=== PATIENT | male | born 1950 | race African-American/Black ===

== ENCOUNTER 2017-01-17 02:18 | Emergency (ER) | payer MEDICARE, OTHER ==
[~2017-01-17] VITALS: Ht 177.8 cm; Wt 67.1 kg
[~2017-01-17 02:18] MED LIST: ADVAIR DISKUS; ASPI-612 PO; ATORVASTATIN CA80 MG PO; CARV12.52 PO; CARV25TA PO; CARV25TA2 PO; CLOP75TA PO; CYCL-331 PO; DONE5TAB7 PO; ENAL20TA PO; Enoxaparin Sodium SQ; FERR-26 PO; FLUT1DIS3 IH; HYDR-971 PO; ISOS1TAB2 PO; MEXI150C PO; NITR0.4T22 SL; RAMI2.5C PO; RIVA10TA PO; SIMV20TA3 PO; SOTA80TA48 PO; SPIR25TA3 PO; TIOT18CA IH; TRIA10.8 NS; WARF3TAB54 PO
[2017-01-17] MEDS: SOTALOL 80 MG TABLET. PO ONE (03:15)
[2017-01-17 03:16] LABS: BASO % 1 % (0-3); EOS # 0.3 x10^3/uL (0.0-0.7); EOS % 4 % (0-3); HEMATOCRIT 39.1 % (39.0-53.0); HEMOGLOBIN 12.8 g/dL (13.0-17.5); LYMPH # 2.8 x10^3/uL (1.0-4.8); LYMPH % 44 % (24-48); MEAN CORPUSCULAR HEMOGLOBIN 33 pg (25-35); MEAN CORPUSCULAR HGB CONC 33 g/dL (31-37); MEAN CORPUSCULAR VOLUME 100 fL (79-100); MONO # 0.8 x10^3/uL (0.0-1.1); MONO % 13 % (0-9); NEUT # 2.4 x10^3uL (1.8-7.7); NEUT % 38 % (31-73); PLATELET COUNT 102 x10^3/uL (140-400); RED BLOOD COUNT 3.91 x10^6/uL (4.30-5.70); RED CELL DISTRIBUTION WIDTH 14.9 % (11.5-14.5); WHITE BLOOD COUNT 6.3 x10^3/uL (4.0-11.0)
[2017-01-17 03:38] LABS: ALBUMIN 3.1 g/dL (3.4-5.0); CALCIUM 8.7 mg/dL (8.5-10.1); CREATININE 1.6 mg/dL (0.7-1.3); GFR 52.8; MAGNESIUM 1.9 mg/dL (1.8-2.4); POTASSIUM 3.7 mmol/L (3.5-5.1); TOTAL BILIRUBIN 0.4 mg/dL (0.2-1.0); TOTAL PROTEIN 6.3 g/dL (6.4-8.2)
--- NOTE | 2017-01-17 04:02 | PHYS DOC ---
General Chief Complaint: Palpitations Stated Complaint: PALPATIONS Time Seen by MD: 02:28 Source: patient, old records Exam Limitations: no limitations Problems: History of Present Illness Initial Comments Patient is a 66-year-old male with an extensive past medical history including coronary artery disease, ischemic cardiomyopathy with an ejection fraction of 20 %, arrhythmias including atrial fibrillation and ventricular tachycardia who comes to the emergency department via EMS for palpitations. Patient states that he awoke approximately 1 AM and got up to use the restroom. After urinating he says he laid down in bed but had trouble resting as he felt like his heart was pounding. He denies actual chest pain, shortness of breath, nausea, diaphoresis, arm or neck symptoms, dizziness, or near syncope. His sole symptoms were a feeling as if his heart were racing and pounding and when he mentioned it to his spouse she called 911. On ED arrival 98.5, 85, 20, 155/87, 98% room air Patient follows with Dr. Felton rasmussen at [facility]. He takes Xarelto and has an implanted pacemaker/defibrillator. Timing/Duration: 1 hour Severity: moderate Modifying Factors: improves with other Associated Symptoms: other Allergies: Coded Allergies: No Known Drug Allergies (Unverified , 05/29/15) Past Medical History Medical History: other (coronary artery disease, pulmonary embolism, abdominal aortic aneurysm, arrhythmia (ventricular tachycardia, atrial fibrillation), COPD , hypertension, hyperlipidemia, congestive heart failure, hepatitis C, chronic kidney disease, peripheral vascular disease, Alzheimer's dementia, deep vein thrombosis, ischemic cardiomyopathy with ejection fraction 20%, anemia) Surgical History: other (CABG, angioplasty, cardiac and peripheral stents, pacemaker, defibrillator) Family History Significant Family History: no pertinent family hx Social History Smoker: greater than 1 pack/day Alcohol: occasionally (binges occasionally) Drugs: marijuana, other (history of methamphetamine) Review of Systems Constitutional: denies chills, denies diaphoresis, denies fever, malaise Respiratory: denies cough, denies orthopnea, denies shortness of breath, denies wheezing Cardiovascular: denies chest pain, denies edema, palpitations, denies syncope Gastrointestinal: denies abdominal pain, denies diarrhea, denies nausea, denies vomiting Musculoskeletal: denies back pain, denies joint swelling, denies neck pain Psychiatric/Neurological: denies headache, denies numbness, denies paresthesia Hematologic/Lymphatic: see HPI Physical Exam General Appearance: no apparent distress Eyes: bilateral eye normal inspection, bilateral eye EOMI Ear, Nose, Throat: hearing grossly normal, normal ENT inspection (poor dentition) Neck: non-tender, supple Respiratory: no respiratory distress, other (pain wheeze bilaterally with good air movement chest is nontender no accessory muscle use) Cardiovascular: regular rate, rhythm, no edema, systolic murmur (II/) Gastrointestinal: non tender, soft Back: no CVA tenderness, no vertebral tenderness Extremities: normal range of motion, non-tender, normal inspection, no pedal edema, no calf tenderness Neurologic/Psychiatric: search engine optimization consultant II-XII nml as tested, no motor/sensory deficits, alert, normal mood/affect, oriented x 3 Skin: normal color, warm/dry Orders, Labs, Meds EKG: (223) normal sinus rhythm 63 bpm, LVH with left ventricular strain versus T inversions anterolaterally no ST elevation noted interpreted by Dr. Chung. At 315 telemetry revealed the patient in ventricular tachycardia with rates in the 140s to 150s. This occurred while the patient was undergoing a portable chest film and I was called emergently to the bedside. As we cleared the room the patient did answer that he was feeling no adverse symptoms including no chest pain or difficulty breathing. I asked the patient to cough and bear down without any improvement in his cardiac rhythm. Patient converted to normal sinus rhythm after approximately 4 minutes without any other intervention. At 330 I was again called to the patient's bedside as the patient slipped into ventricular tachycardia once again this time lasting for 2 minutes and he converted to normal sinus rhythm spontaneously without intervention. The patient cannot recall the name of his community placement worker so he contacted his significant other. 337: I discussed the patient with on-call cardiology Dr. Harley Hodges. He directed that I initiate amiodarone 200 mg by mouth 3 times a day first dose now. The patient is anticoagulated on Xarelto and I did inform Dr. Hodges of the patient's elevated troponin. At this point he requested that the patient be transferred to [facility] and admitted to himself for further evaluation and treatment. Single view chest: Hyperinflation with pacemaker noted no acute cardiopulmonary process. Interpreted by Dr. Chung. Pertinent labs: D-dimer 0.72, BUN 16, creatinine 1.6, glucose 163, AST 58, afebrile T1 102, troponin 0.061, BNP 1117, EtOH less than 10, urine studies including drug screen remain pending. 0425: Patient rechecked, he remained with stable vital signs and denies any current symptoms. I discussed [facility] transfer and new medication amiodarone. Patient's questions were answered and he is agreeable to transfer " I just want to get well." 0507: Urine drug screen is once again positive for amphetamine/methamphetamine. This has been the case in the past and the patient continues to deny any use. 0531: [facility] initially notified us that had no ICU beds. I contacted Dr. Hodges, he is agreeable to CCU or telemetry admission what ever we're able to come up with and he will sort it out in the morning. This was over an hour ago, I just received word that [facility] houseman contacted our community engagement manager notifying her that no transfer would take place until after shift change at 7 AM. Patient remains in guarded condition Impressions: Paroxysmal ventricular tachycardia Ischemic cardiomyopathy with congestive heart failure Elevated troponin Chronic kidney disease Tobaccoism Methamphetamine abuse Marijuana abuse Chronic Xarelto anticoagulation History of COPD/PE/hepatitis C Departure Time of Disposition: 04:24 Disposition: 01 HOME, SELF-CARE Diagnosis: ventricular tachycardia, elevated troponin, CHF, Condition: GUARDED Additional Instructions: EMS transfer to [facility] for CCU admission Dr. Hodges is the accepting physician. Critical Care Note Total Time (mins): 90 Comments Direct observation and supervision of tachyarrhythmia management, test interpretation, data collection for patient history, and arranging transfer. CHRIS CHUNG DO Jan 17, 2017 04:02
[2017-01-17] MEDS: AMIODARONE HCL 200 MG TABLET PO ONE (04:15)
[2017-01-17] MEDS ORDERED: MAGN100T PO (04:35)
[2017-01-17 04:54] LABS: BARBITURATES NEG (NEG); BENZODIAZEPINES NEG (NEG); CANNABINOIDS NEG (NEG); COCAINE NEG (NEG); METHADONE NEG (NEG); OPIATES NEG (NEG); PHENCYCLIDINE NEG (NEG)
[2017-01-17 04:58] LABS: AMPHETAMINE/METHAMPHETAMINE POS (NEG)
[2017-01-17 05:02] LABS: BILIRUBIN,URINE NEG (NEG); CLARITY,URINE CLEAR; COLOR,URINE YELLOW; GLUCOSE,URINE NEG (NEG); NITRITE,URINE NEG (NEG); UROBILINOGEN,URINE 0.2 mg/dL (0.2 mg/dL)
[2017-01-17 05:03] LABS: BACTERIA,URINE 0 /HPF (0-FEW); RBC,URINE 0 /HPF (0-2); WBC,URINE OCC /HPF (0-4)
[2017-01-17 08:03] VITALS: BP 127/67
--- NOTE | 2017-01-17 08:22 | RAD ---
Exam performed: One view chest. Indication: palpitations Date of Service: 01/17/2017 5:05 AM Comparison: One view chest from 10/19/15. Single AP upright portable view chest findings: Cardiomediastinal silhouette is within limits of normal. There is a bipolar pacemaker in place. No acute infiltrates, effusion or pneumothorax is detected. The bony structures are normal. Impression: No acute cardiopulmonary process is detected.
--- NOTE | 2017-01-17 13:45 | EKG ---
[address] [address] Test Date: 2017-01-17 Test Time: 02:24:49 Pat Name: LISY BENNETT Department: Room: Gender: M Senior Systems Architect: DEANDRE : 1950 Requested By: CHRIS ANAYA Order Number: [id number] Reading MD: Alejandro Borja Measurements Intervals [place] Rate: 63 P: 54 IN: 176 QRS: -44 QRSD: 86 T: 136 QT: 404 QTc: 416 Interpretive Statements SINUS RHYTHM CONSIDER LEFT VENTRICULAR HYPERTROPHY ST & T ABNORMALITY, CONSIDER ANTERIOR ISCHEMIA OR LEFT VENTRICULAR STRAIN Electronically Signed On 01-18-2017 9:33:02 CDT by Alejandro Borja
--- NOTE | 2017-01-17 13:47 | EKG ---
[address] [address] Test Date: 2017-01-17 Test Time: 03:22:22 Pat Name: LISY BENNETT Department: Room: Gender: M Value Stream Coach: DEANDRE : 1950 Requested By: CHRIS ANAYA Order Number: [id number] Reading MD: Alejandro Borja Measurements Intervals [place] Rate: 86 P: WI: QRS: -53 QRSD: 210 T: 133 QT: 432 QTc: 520 Interpretive Statements SR BIGIMINAL PVC ABNORMAL EKG Electronically Signed On 01-18-2017 9:33:27 CDT by Alejandro Borja
--- NOTE | 2017-01-17 13:47 | EKG ---
[address] [address] Test Date: 2017-01-17 Test Time: 03:31:21 Pat Name: LISY BENNETT Department: Room: Gender: M Imaging Account Manager: DEANDRE : 1950 Requested By: CHRIS ANAYA Order Number: [id number] Reading MD: Alejandro Borja Measurements Intervals [place] Rate: 139 P: -143 ME: 66 QRS: -111 QRSD: 204 T: 70 QT: 334 QTc: 514 Interpretive Statements VENTRICULAR TACHYCARDIA Electronically Signed On 01-18-2017 9:33:55 CDT by Alejandro Borja
== END 2017-01-17 08:10 | disposition home or self-care (01) ==
LOC: ER 02:18
DX: I47.2 Ventricular tachycardia (principal); R79.89 Other specified abnormal findings of blood chemistry; I13.0 Hypertensive heart and chronic kidney disease with heart failure and stage 1 through stage 4 chronic kidney disease, or unspecified chronic kidney disease; I25.810 Atherosclerosis of coronary artery bypass graft(s) without angina pectoris; I50.9 Heart failure, unspecified; N18.9 Chronic kidney disease, unspecified; F17.210 Nicotine dependence, cigarettes, uncomplicated; E78.5 Hyperlipidemia, unspecified; I42.9 Cardiomyopathy, unspecified; I48.91 Unspecified atrial fibrillation; J44.9 Chronic obstructive pulmonary disease, unspecified; Z86.718 Personal history of other venous thrombosis and embolism; Z86.711 Personal history of pulmonary embolism; Z86.19 Personal history of other infectious and parasitic diseases; Z86.2 Personal history of diseases of the blood and blood-forming organs and certain disorders involving the immune mechanism; Z98.62 Peripheral vascular angioplasty status; Z95.0 Presence of cardiac pacemaker
CPT/HCPCS: 36415; 71010; 80053; 80307; 81001; 82550; 83735; 83880; 84484; 85025; 85379; 93005; 99291; 99292; G0480; G0479

== ENCOUNTER 2017-09-18 09:42 | Emergency (ER) | payer MEDICARE, OTHER ==
[~2017-09-18 09:42] MED LIST changes: -FERR-26 PO; +FERR325T14 PO; +MAGN100T PO
[2017-09-18 10:13] VITALS: BP 142/60
--- NOTE | 2017-09-18 10:31 | PHYS DOC ---
Past History Past Medical History: A-Fib, Anemia, CAD, CHF, COPD, Heart Disease, Hypertension, Liver Disease, NM, Renal Disease Past Surgical History: Pacemaker Additional Past Surgical Histo: MULTIPLE STENT PLACEMENT Smoking: Less than 1pk/day Alcohol Use: Rarely Drug Use: Marijuana Adult General Chief Complaint Chief Complaint: DENTAL PROBLEM HPI HPI Patient is a 67 year old M who presents with a mass in his lower abdomen is been present for several years. He notes this mass which sometimes sticks out and sometimes does not. He has no pain or associated symptoms. He also describes swelling of his upper left lip which began this morning. He denies pain associated with the swelling. He has no dental pain. He has no fever sweats or chills. His enalapril was increased several days ago. Review of Systems Review of Systems Constitutional: Denies fever or chills [] Eyes: Denies change in visual acuity, redness, or eye pain [] HENT: Denies nasal congestion or sore throat [] Respiratory: Denies cough or shortness of breath [] Cardiovascular: No additional information not addressed in HPI [] GI: Denies abdominal pain, nausea, vomiting, bloody stools or diarrhea [] : Denies dysuria or hematuria [] Musculoskeletal: Denies back pain or joint pain [] Integument: Denies rash or skin lesions [] Neurologic: Denies headache, focal weakness or sensory changes [] Endocrine: Denies polyuria or polydipsia [] All other systems were reviewed and found to be within normal limits, except as documented in this note. Family History Family History No pertinent family medical history was reported Current Medications Current Medications Medications reviewed Allergies Allergies Allergies Coded Allergies Type Severity Reaction Last Updated Verified No Known Drug Allergies 05/29/15 No Physical Exam Physical Exam Constitutional: Well developed, well nourished, no acute distress, non-toxic appearance. [] HENT: Normocephalic, atraumatic, mild swelling of the left upper lip, no adjacent dental infection noted, no obvious signs of infection noted Eyes: EOMI, conjunctiva normal, no discharge. [] Neck: Normal range of motion, no tenderness, supple, no stridor. [] Cardiovascular:Heart rate regular rhythm, no murmur [] Lungs & Thorax: Bilateral breath sounds clear to auscultation [] Abdomen: Bowel sounds normal, soft, no tenderness, no masses, no pulsatile masses. [] Reducible left inguinal hernia noted, no pain Skin: Warm, dry, no erythema, no rash. [] Extremities: No tenderness, no cyanosis, no clubbing, ROM intact, no edema. [] Neurologic: Alert and oriented X 3, normal motor function, normal sensory function, no focal deficits noted. [] Psychologic: Affect normal, judgement normal, mood normal. [] Current Patient Data Vital Signs Vital Signs Date Time Temp Pulse Resp B/P (MAP) Pulse Ox O2 Delivery O2 Flow Rate FiO2 09/18/17 09:42 98.4 74 18 100 Room Air EKG EKG [] Radiology/Procedures Radiology/Procedures [] Course & Med Decision Making Course & Med Decision Making Pertinent Labs and Imaging studies reviewed. (See chart for details) [] Dragon Disclaimer Dragon Disclaimer This electronic medical record was generated, in whole or in part, using a voice recognition dictation system. Departure Departure: Impression: Primary Impression: Inguinal hernia Additional Impression: Angioedema due to angiotensin converting enzyme inhibitor (ELSI-I) Referrals: ANISHA BRENNER MD (PCP) Patient Instructions: Angioedema, Inguinal Hernia, Adult Additional Instructions: Franco was seen in the emergency department for an abdominal mass and lip swelling. No emergency medical condition was found on history or physical exam. He was found to have symptoms of a hernia in his abdomen. His lip swelling may be related to his ramipril. He was advised to stop this medication and follow- up with his primary care doctor as soon as possible for further management. He was advised return to the emergency room as soon as possible if he develops increasing swelling, difficulty breathing or difficulty swallowing or any new or worsening symptoms. Problem Qualifiers Primary Impression: Inguinal hernia Obstruction and gangrene presence: without obstruction or gangrene Laterality : unilateral Recurrence: not specified as recurrent Qualified Codes: K40.90 - Unilateral inguinal hernia, without obstruction or gangrene, not specified as recurrent ANISHA CHRISTIANSON MD Sep 18, 2017 10:31
== END 2017-09-18 10:45 | disposition home or self-care (01) ==
LOC: ER 09:42
DX: K40.90 Unilateral inguinal hernia, without obstruction or gangrene, not specified as recurrent (principal); T46.4X5A Adverse effect of angiotensin-converting-enzyme inhibitors, initial encounter; I48.91 Unspecified atrial fibrillation; I25.10 Atherosclerotic heart disease of native coronary artery without angina pectoris; I11.0 Hypertensive heart disease with heart failure; I50.9 Heart failure, unspecified; J44.9 Chronic obstructive pulmonary disease, unspecified; I25.2 Old myocardial infarction; F17.200 Nicotine dependence, unspecified, uncomplicated; F12.10 Cannabis abuse, uncomplicated; Z95.0 Presence of cardiac pacemaker; Y92.89 Other specified places as the place of occurrence of the external cause
CPT/HCPCS: 99281

== ENCOUNTER 2020-04-29 01:10 | Observation (INO) | payer OTHER, MEDICAID ==
[2020-04-29] VITALS (10 sets, daily range): BP systolic 112–155; BP diastolic 68–104
[~2020-04-29] VITALS: Ht 177.8 cm; Wt 65.7 kg
[~2020-04-29 01:10] MED LIST changes: -ASPI-612 PO; +ASPI-889 PO; -CARV12.52 PO; +CARV12.547 PO; -ENAL20TA PO; +ENAL20TA10 PO; +HYDR-3165 PO; -HYDR-971 PO; -RAMI2.5C PO; +RAMI2.5C2 PO; +SIMV20TA18 PO; -SIMV20TA3 PO; -SPIR25TA3 PO; +SPIR25TA5 PO
--- NOTE | 2020-04-29 04:00 | NUR ---
Admission Note: Pt transported via EMS from ED to ICU room 1, pt transferred from cart to bed with three person assist, VSS (BP continues to remain high, nitro drip infusing as ordered), pt sating 100% on 4liters (turned oxygen down to 2 liters and pt continues to sat 98%), no c/o pain or n/v, pt oriented to room/safety precautions/isolation precautions/ and call light, admission documentation completed, will continue to monitor.
--- NOTE | 2020-04-29 05:21 | PHYS DOC ---
Past History Past Medical History: High Cholesterol, Heart Disease, Hypertension, MA Past Surgical History: Other Additional Past Surgical Histo: MULTIPLE STENT PLACEMENT Smoking: Less than 1pk/day Alcohol Use: Occasionally Drug Use: None General Adult HPI: HPI: History obtained from patient and EMS. Patient is a 61-year-old male with significant cardiac history including coronary artery disease, pacemaker placement, heart failure who presents with acute onset shortness of breath. Per EMS patient reported sudden onset chest pain and shortness of breath just prior to arrival. He did take a home nitroglycerin relief of his chest pain. He states he has had progressive shortness of breath though. Denies any cough or fever. Denies syncope. Denies any feelings of swelling. Denies syncope. States he does have a history of heart failure and this feels similar. Endorses orthopnea and bendopnea. Does not use oxygen at baseline. Denies any recent stent placements. Denies any known exposure to Covid. No other complaints. Review of Systems: Review of Systems: Constitutional: Denies fever or chills Eyes: Denies change in visual acuity HENT: Denies nasal congestion or sore throat Respiratory: Positive for shortness of breath Cardiovascular: Positive for chest pain GI: Denies abdominal pain, nausea, vomiting, bloody stools or diarrhea : Denies dysuria Musculoskeletal: Denies back pain or joint pain Integument: Denies rash Neurologic: Denies headache, focal weakness or sensory changes Endocrine: Denies polyuria or polydipsia Lymphatic: Denies swollen glands Psychiatric: Denies depression or anxiety Allergies: Allergies: Allergies Coded Allergies Type Severity Reaction Last Updated Verified enalapril Allergy Intermediate UPPER LIP SWELLING 09/22/18 Yes Physical Exam: PE: Constitutional: Well developed, well nourished, no acute distress, non-toxic appearance. [] HENT: Normocephalic, atraumatic, bilateral external ears normal, oropharynx moist, no oral exudates, nose normal. [] Eyes: PERRLA, EOMI, conjunctiva normal, no discharge. [] Neck: Normal range of motion, no tenderness, supple, no stridor. [] Cardiovascular: Heart rate regular, nontachycardic, no murmur [] Lungs & Thorax: Rales noted in all lung moran. Accessory muscle usage appreciated. Tachypneic. 90% on BiPAP. Abdomen: soft, no tenderness, no masses, no pulsatile masses. [] Skin: Warm, dry, no erythema, no rash. [] Back: No tenderness, no CVA tenderness. [] Extremities: No tenderness, no cyanosis, no clubbing, ROM intact, no edema. [] Neurologic: Alert and oriented X 3, normal motor function, normal sensory function, no focal deficits noted. [] Psychologic: Affect normal, judgement normal, mood normal. [] EKG: EKG: [] EKG consistent with sinus rhythm. Ventricular rate of 66 bpm. Left axis noted. Artifact present. No obvious ST segment elevation appreciated. Slight ST flattening noted in leads III and V5. Radiology/Procedures: Radiology/Procedures: [] Heart Score: HEART Score for Chest Pain: HEART Score for Chest Pain Response (Comments) Value History Moderately Suspicious 1 ECG Nonspecific Repolarizatio 1 Age > 65 2 Risk Factors >3 Risk Factors or Hx CAD 2 Troponin >1-<3x Normal Limit 1 Total 7 Risk Factors: Risk Factors: DM, Current or recent (<one month) smoker, HTN, HLP, family history of CAD, obesity. Risk Scores: Score 0 - 3: 2.5% MACE over next 6 weeks - Discharge Home Score 4 - 6: 20.3% MACE over next 6 weeks - Admit for Clinical Observation Score 7 - 10: 72.7% MACE over next 6 weeks - Early Invasive Strategies Course & Med Decision Making: Course & Med Decision Making Pertinent Labs and Imaging studies reviewed. (See chart for details) [] Patient is a 69-year-old male who arrives via EMS for acute onset shortness of breath. He does arrive with BiPAP in place. See initial assessment above. Chest x-ray does show pulmonary edema. Labs were obtained. Given that we are currently experiencing downtime they were faxed to me and are not reflected currently in the electronic medical record. Patient did have an elevated proBNP of approximately 4000. Elevated creatinine 1.82. He was started on nitroglycerin infusion. He was eventually able to be de-escalate it from BiPAP to nasal cannula. His respiratory distress did improve. I do feel he would benefit from hospitalization. He may need further diuresis. Patient will be hospitalized at our facility. Hari Disclaimer: Hari Disclaimer: This electronic medical record was generated, in whole or in part, using a voice recognition dictation system. Departure Departure: Impression: Primary Impression: Respiratory failure Qualified Codes: J96.01 - Acute respiratory failure with hypoxia Additional Impressions: Heart failure Qualified Codes: I50.9 - Heart failure, unspecified CAD (coronary artery disease) of artery bypass graft Qualified Codes: I25.810 - Atherosclerosis of coronary artery bypass graft(s) without angina pectoris Disposition: ADMITTED INPT THIS HOSP Condition: STABLE Referrals: ANISHA BRENNER MD (PCP) VIVIANA KEITH DO Apr 29, 2020 05:21
[2020-04-29] MEDS ORDERED: SACU1TAB4 PO (06:12)
[2020-04-29] MEDS ORDERED: FURO20TA3 PO (06:12)
[2020-04-29 07:50] LABS: HEMATOCRIT 43.5 % (39.0-53.0); HEMOGLOBIN 13.8 g/dL (13.0-17.5); MEAN CORPUSCULAR HEMOGLOBIN 32 pg (25-35); MEAN CORPUSCULAR HGB CONC 32 g/dL (31-37); MEAN CORPUSCULAR VOLUME 101 fL (79-100); PLATELET COUNT 119 x10^3/uL (140-400); RED BLOOD COUNT 4.31 x10^6/uL (4.30-5.70); RED CELL DISTRIBUTION WIDTH 15.3 % (11.5-14.5); WHITE BLOOD COUNT 7.9 x10^3/uL (4.0-11.0)
[2020-04-29 07:51] LABS: BASO % 1 % (0-3); EOS # 0.1 x10^3/uL (0.0-0.7); EOS % 1 % (0-3); LYMPH # 1.5 x10^3/uL (1.0-4.8); LYMPH % 19 % (24-48); MONO # 0.8 x10^3/uL (0.0-1.1); MONO % 10 % (0-9); NEUT # 5.5 x10^3uL (1.8-7.7); NEUT % 70 % (31-73)
[2020-04-29 08:23] LABS: ALBUMIN 3.8 g/dL (3.4-5.0); CALCIUM 9.1 mg/dL (8.5-10.1); CREATININE 1.8 mg/dL (0.7-1.3); GFR 45.6; TOTAL BILIRUBIN 0.8 mg/dL (0.2-1.0); TOTAL PROTEIN 7.7 g/dL (6.4-8.2)
--- NOTE | 2020-04-29 10:21 | RAD ---
PORTABLE CHEST 1V Clinical indications: SHORT OF BREATH COMPARISON: January 17, 2017. Findings: Mild diffuse bilateral interstitial pulmonary edema with Axel B line's is seen along with mild vascular congestion and cephalization of pulmonary flow. No lung consolidation or pleural effusion or pneumothorax is seen. The heart size is enlarged but stable. Bipolar atrioventricular pacemaker is again evident. The mediastinum is stable. Impression: Findings are consistent with new mild CHF. No lung consolidation is seen. Electronically signed by: Cristofer Joy MD (04/29/2020 10:18 AM) [id number]
[2020-04-29] MEDS ORDERED: NITROGLYCERIN SUBLINGUAL 0.4 MG BOTTLE OF 25. SL PRN (10:30)
--- NOTE | 2020-04-29 10:42 | PDOC2 ---
MARIA LUISA HARTMAN SPINDLE TESTER 04/29/20 1042: CARDIAC CONSULT DATE OF CONSULT DOS: DATE: 04/29/20 TIME: 10:39 REASON FOR CONSULT Reason for Consult CHF REFERRING PHYSICIAN Referring Physician Dr. Clayton SOURCE Source: Chart review, Patient HPI History of Present Illness This is a 69 yo male who presented secondary to chest pain and shortness of breath. Patient is a poor historian. Patient asking me to contact his girlfriend, Mercedez. Contacted Mercedez. Reports he woke up yesterday and was having some shortness. Did have a bit of pain his left chest. Nonradiating. No associated dizziness, diaphoresis, palpitations, or nausea/vomiting. Does have a history of CAD s/p PCI/stents and ischemic cardiomyopathy s/p AICD. EMS was called due to difficulty breathing. He follows with Dr. Ya with [facility]. PAST MEDICAL HISTORY Cardiovascular: CAD, CHF, HTN, hyperipidemia, Other (PAD ) Pulmonary: Other (PE) CENTRAL NERVOUS SYSTEM: Dementia GI: GERD Heme/Onc: Anemia NOS Hepatobiliary: Hep A/B/C (C) Renal/: Chronic renal insuff PAST SURGICAL HISTORY Past Surgical History: Other (AICD) FAMILY HISTORY Family History: Heart Disease, Hypertension SOCIAL HISTORY Smoke: <1 pack per day ALCOHOL: none Drugs: None Lives: with Family (girlfriend ) CURRENT MEDICATIONS Current Medications Current Medications Ferrous Sulfate (Feosol) 325 mg DAILY PO ; Start 04/30/20 at 09:00; Status UNV Furosemide (Lasix) 20 mg DAILY PO ; Start 04/30/20 at 09:00; Status UNV Mexiletine HCl (Mexitil) 150 mg TID PO ; Start 04/29/20 at 14:00; Status UNV Nitroglycerin (Nitrostat) 0.4 mg PRN Q5MIN PRN SL CHEST PAIN; Start 04/29/20 at 10:30; Status UNV Rivaroxaban (Xarelto) 10 mg DAILY16 PO ; Start 04/29/20 at 16:00; Status UNV Sotalol HCl (Betapace) 120 mg BID PO ; Start 04/29/20 at 21:00; Status UNV Spironolactone (Aldactone) 25 mg DAILY PO ; Start 04/30/20 at 09:00; Status UNV Non-Formulary Medication (Atorvastatin Calcium ) 80 mg QHS PO ; Start 04/29/20 at 21:00; Status UNV Non-Formulary Medication (Carvedilol (Coreg)) 6.25 mg BIDWMEALS PO ; Start 04/29/20 at 17:00; Status UNV Non-Formulary Medication (Ramipril ) 1 cap DAILY PO ; Start 04/30/20 at 09:00; Status UNV Non-Formulary Medication (Sacubitril/ Valsartan (Entresto 97 mg-103 mg Tablet)) 1 each BID PO ; Start 04/29/20 at 21:00; Status UNV Active Scripts Active Reported Furosemide 20 Mg Tablet 20 Mg PO DAILY Entresto 97 mg-103 mg Tablet (Sacubitril/Valsartan) 1 Each Tablet 1 Each PO BID Xarelto (Rivaroxaban) 10 Mg Tablet 10 Mg PO DAILY16 Coreg (Carvedilol) 25 Mg Tablet 6.25 Mg PO BIDWMEALS Spironolactone 25 Mg Tablet 25 Mg PO DAILY Water pill LAST DOSE GIVEN: DATE: TIME: NEXT DOSE DUE: DATE: TIME: Sotalol (Sotalol Hcl) 80 Mg Tablet 120 Mg PO BID Irregular heartbeat LAST DOSE GIVEN: DATE: TIME: NEXT DOSE DUE: DATE: TIME: Ramipril 2.5 Mg Capsule 1 Cap PO DAILY High blood pressure LAST DOSE GIVEN: DATE: TIME: NEXT DOSE DUE: DATE: TIME: Mexiletine Hcl 150 Mg Capsule 150 Mg PO TID Irregular heartbeat LAST DOSE GIVEN: DATE: TIME: NEXT DOSE DUE: DATE: TIME: NITROGLYCERIN SubLingual (Nitroglycerin) 0.4 Mg Tab.subl 0.4 Mg SL PAIN PRN As needed for chest pain LAST DOSE GIVEN: DATE: TIME: NEXT DOSE DUE: DATE: TIME: Ferrous Sulfate 325 Mg Tablet 325 Mg PO DAILY Iron supplement LAST DOSE GIVEN: DATE: TIME: NEXT DOSE DUE: DATE: TIME: Atorvastatin Calcium 80 Mg Tablet 80 Mg PO QHS High cholesterol LAST DOSE GIVEN: DATE: TIME: NEXT DOSE DUE: DATE: TIME: ALLERGIES Allergies: Coded Allergies: enalapril (Verified Allergy, Intermediate, UPPER LIP SWELLING, 04/29/20) SEE ER VISIT 09/18/17 PT TOLERATES OTHER ACEI ROS Review of Systems 14 point ROS conducted with pertinent positives noted above in HPI PHYSICAL EXAM General: Alert, Cooperative, No acute distress, Other (oriented to person and place) HEENT: Atraumatic Lungs: Other (diminished bases) Heart: Regular rate (a-paced ) Abdomen: Soft Extremities: No edema, Normal pulses Neuro: Normal speech, Sensation intact Psych/Mental Status: Mood NL MUSCULOSKELETAL: Osteoarthritic changes both hands VITALS Vital Signs Vital Signs Date Time Temp Pulse Resp B/P (MAP) Pulse Ox O2 Delivery O2 Flow Rate FiO2 04/29/20 10:00 71 14 124/83 (97) 100 Room Air 04/29/20 08:00 98.3 04/29/20 08:00 4.0 LABS LABS Laboratory Tests Test 04/29/20 01:37 White Blood Count 7.9 x10^3/uL (4.0-11.0) Red Blood Count 4.31 x10^6/uL (4.30-5.70) Hemoglobin 13.8 g/dL (13.0-17.5) Hematocrit 43.5 % (39.0-53.0) Mean Corpuscular Volume 101 fL (79-100) Mean Corpuscular Hemoglobin 32 pg (25-35) Mean Corpuscular Hemoglobin Concent 32 g/dL (31-37) Red Cell Distribution Width 15.3 % (11.5-14.5) Platelet Count 119 x10^3/uL (140-400) Neutrophils (%) (Auto) 70 % (31-73) Lymphocytes (%) (Auto) 19 % (24-48) Monocytes (%) (Auto) 10 % (0-9) Eosinophils (%) (Auto) 1 % (0-3) Basophils (%) (Auto) 1 % (0-3) Neutrophils # (Auto) 5.5 x10^3uL (1.8-7.7) Lymphocytes # (Auto) 1.5 x10^3/uL (1.0-4.8) Monocytes # (Auto) 0.8 x10^3/uL (0.0-1.1) Eosinophils # (Auto) 0.1 x10^3/uL (0.0-0.7) Basophils # (Auto) 0.0 x10^3/uL (0.0-0.2) Prothrombin Time 14.2 SEC (9.4-11.4) Prothromb Time International Ratio 1.4 (0.9-1.1) Sodium Level 142 mmol/L (136-145) Potassium Level 4.0 mmol/L (3.5-5.1) Chloride Level 107 mmol/L (98-107) Carbon Dioxide Level 25 mmol/L (21-32) Anion Gap 10 (6-14) Blood Urea Nitrogen 16 mg/dL (8-26) Creatinine 1.8 mg/dL (0.7-1.3) Estimated GFR (Cockcroft-Gault) 45.6 BUN/Creatinine Ratio 9 (6-20) Glucose Level 170 mg/dL (70-99) Calcium Level 9.1 mg/dL (8.5-10.1) Magnesium Level 2.0 mg/dL (1.8-2.4) Total Bilirubin 0.8 mg/dL (0.2-1.0) Aspartate Amino Transf (AST/SGOT) 33 U/L (15-37) Alanine Aminotransferase (ALT/SGPT) 38 U/L (16-63) Alkaline Phosphatase 106 U/L (46-116) Troponin I Quantitative 0.044 ng/mL (0-0.055) VE-Pix-E-Type Natriuretic Peptide 3926 pg/mL (0-124) Total Protein 7.7 g/dL (6.4-8.2) Albumin 3.8 g/dL (3.4-5.0) Albumin/Globulin Ratio 1.0 (1.0-1.7) ECHOCARDIOGRAM Echocardiogram <Conclusion> There is moderate to severe asymmetric left ventricular hypertrophy. Left ventricle systolic function is severely impaired. The Ejection Fraction is 15-20%. There is mild diastolic dysfunction. The right ventricle is normal size. Doppler and Color Flow revealed trace to mild mitral regurgitation. Doppler and Color Flow revealed trace tricuspid regurgitation. The PA pressure was estimated at 17 mmHg. There is a trace loculated anterior pericardial effusion. DATE: 09/10/15 0904 ASSESSMENT/PLAN Assessment/Plan 1. Acute respiratory failure with acute on chronic systolic CHF 2. Chest pain, atypical. Initial trop 0.04 3. ICM; s/p AICD; follow with Dr. Ya cardiology at [facility] 4. CAD s/p PCI/stents 5. Hypertension; controlled 6. Hyperlipidemia; statin 7. CKD 8. PAFIB; on OAC with Xarelto. Maintaining SR with Sotolal Recommendations Mild diuresis Continue HF optimization with Entresto, Aldactone, Lasix Trend troponin Lipids ASA Resume secondary prevention Obtain cardiac records from [facility] DAILY MATIAS MD 04/29/20 1633: CARDIAC CONSULT ASSESSMENT/PLAN Assessment/Plan Agree with AUTOMOTIVE TIRE TESTER's assessment and plan. Continue diuresis for acute on chronic systolic heart failure. Chest pain with atypical features. Initial troponin level 0.04. CAD status appears to be stable clinically. s/p AICD for ischemic cardiomyopathy without any ICD firing episodes per patient. PAF with telemetry showing paced rhythm. Continue Xarelto for stroke prophylaxis. We will obtain records from primary program admin. Thank you for your consultation MARIA LUISA HARTMAN APRN Apr 29, 2020 10:42 DAILY MATIAS MD Apr 29, 2020 16:33
[2020-04-29] MEDS: FUROSEMIDE 20 MG TABLET PO SCH (11:45)
[2020-04-29] MEDS ORDERED: FUROSEMIDE 40 MG/4 ML VIAL IVP ONE (11:45)
[2020-04-29] MEDS: FERROUS SULFATE 325 MG TABLET. PO SCH (12:14)
[2020-04-29] MEDS: SPIRONOLACTONE 25 MG TABLET PO SCH (12:14)
[2020-04-29] MEDS: MEXILETINE 150 MG CAPSULE PO SCH ×2 (14:00→20:19)
[2020-04-29] MEDS ORDERED: RIVAROXABAN 10 MG TABLET. PO SCH (16:00)
--- NOTE | 2020-04-29 16:25 | HP ---
ADMIT DATE: 04/29/2020 HISTORY OF PRESENT ILLNESS: The patient is a 69-year-old -[place] male patient with significant cardiac history including coronary artery disease, pacemaker placement, heart failure, who presented with acute onset of shortness of breath. The patient reported sudden onset of chest pain and shortness of breath just prior to arrival. He did take at home nitroglycerin to relieve his chest pain. He stated that he has had progressive shortness of breath, though denies any cough or fever. Denied any syncope. Denied any swelling of the legs. Denied any syncopal episode. Stated that he has history of heart failure and this feels similar. He did endorse orthopnea, paroxysmal nocturnal dyspnea, though does not use any oxygen at home. Denied any known exposure to COVID. He was extensively investigated in the Emergency Room and was diagnosed with acute on chronic systolic congestive heart failure, acute respiratory failure; ischemic cardiomyopathy, status post AICD, followed by Dr. Prescott at [facility]; hypertension and hyperlipidemia. He is also known to have paroxysmal atrial fibrillation for which he is on Xarelto. The patient was evaluated in the Emergency Room. His first set of cardiac enzymes showed troponin to be 0.044 and his EKG showed that he was in paced rhythm; however, without any obvious ST segment elevation or depression. The patient was initially started on BiPAP machine and was started on nitroglycerin drip. His BNP was found about approximately 4000 and his chest x-ray showed that the findings are consistent with new mild congestive heart failure; no lung consolidation is seen. He was treated with Lasix 40 mg once a day and was admitted to the ICU for further evaluation to do 2 more sets of cardiac enzyme and to consult the Cardiology team. PAST MEDICAL HISTORY: Significant for coronary artery disease, hypertension, hyperlipidemia, peripheral arterial disease, congestive heart failure, pulmonary emboli, gastroesophageal reflux disease, anemia; hepatitis A, B and C as well as dementia and chronic renal insufficiency. PAST SURGICAL HISTORY: Significant for AICD placement. ALLERGIES: HE IS ALLERGIC TO ENALAPRIL. MEDICATIONS: He is currently on following medications: Ferrous sulfate 325 mg once a day, rivaroxaban 10 mg once a day, mexiletine 150 mg 3 times a day, atorvastatin calcium 80 mg at bedtime, nitroglycerin 0.4 mg sublingually every 5 minutes x 3 as needed for chest pain, carvedilol 6.25 mg twice a day, sotalol 120 mg twice a day, Entresto 97/103 mg tablet twice a day, spironolactone 25 mg once a day and furosemide 20 mg daily. FAMILY HISTORY: Noncontributory. SOCIAL HISTORY: He lives with his girlfriend. He continued to smoke, drink alcohol and use marijuana, but denied any cocaine with methamphetamine or heroin. PHYSICAL EXAMINATION: GENERAL: On arrival to the Emergency Room, the patient was extremely tachypneic; however, there was no pallor, jaundice, cyanosis or thyromegaly. No jugular venous distention. No limb edema. VITAL SIGNS: His heart rate was 58, blood pressure was 138/88, temperature 98.1, respiratory rate was 18 and oxygen saturation was 91%. HEAD, EYES, EARS, NOSE AND THROAT: Showed normocephalic, atraumatic. NECK: Supple. HEART: Normal first and second heart sounds. No gallop or murmur. CHEST: Showed central trachea, equally reduced expansion, reduced air entry, vesicular breath sounds. No crepitation or rhonchi. ABDOMEN: Distended, soft, nontender. NEUROLOGIC: He was awake, alert, responding appropriately. All cranial nerves intact. EXTREMITIES: He moves extremities without difficulty. LABORATORY DATA: Showed a white cell count 7900, hemoglobin 14, hematocrit 44, MCV 101, and platelet count of 119,000 with normal manual differential. Serum sodium was 142, potassium 4, chloride 107, bicarbonate 25, anion gap of 10, BUN 16, creatinine 1.8, estimated GFR was 45 mL per minute. His glucose 170, calcium was 9.1, magnesium 2. Total bilirubin, AST, ALT, alkaline phosphatase were normal. His beta natriuretic peptide was 3926. Total protein 7.7, albumin 3.8. His first set of cardiac enzymes showed troponin to be 0.044, the second one 0.056. Serum triglycerides were 40, total cholesterol 92, LDL cholesterol was 34, VLDL was 8, HDL cholesterol was 50 and the ratio was 1. His chest x-ray showed that he has mild congestive heart failure. PLAN: Plan is to do 2 more sets of cardiac enzyme, check his fasting lipid profile and consult the Cardiology team for further evaluation. We did get the list of all his medication that was reconciled. MIGUEL VALDIVIA MD DR: Caryn JOB#: [id number] / [id number]
[2020-04-29] MEDS: CARVEDILOL 6.25 MG TABLET PO SCH (16:59)
--- NOTE | 2020-04-29 17:01 | EKG ---
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
[2020-04-29] MEDS: SOTALOL 80 MG TABLET. PO SCH (20:19)
[2020-04-29] MEDS: SACUBITRIL/VALSARTAN 49/51MG TABLET. PO SCH (20:19)
[2020-04-29] MEDS ORDERED: ATORVASTATIN CALCIUM 20 MG TABLET PO SCH (21:00)
--- NOTE | 2020-04-30 05:39 | NUR ---
Shift Note: Pt is a/o x4, VSS (on room air), no c/o pain or n/v at this time, uneventful night, pt is anticipating discharge to home today.
[2020-04-30 07:00] VITALS: BP 147/90
[2020-04-30] MEDS ORDERED: ASPIRIN ENTERIC COATED 81 MG TABLET.DR. PO SCH (08:00)
--- NOTE | 2020-04-30 08:11 | PDOC ---
CARDIO Progress Notes Date & Time Date of Service DATE: 04/30/20 TIME: 08:09 Time of Evaluation 08:09 Subjective Notes No chest pain, shortness of breath, dizziness Vitals Vitals Vital Signs Date Time Temp Pulse Resp B/P (MAP) Pulse Ox O2 Delivery O2 Flow Rate FiO2 04/29/20 23:34 98.4 60 14 141/82 (101) 98 Room Air 04/29/20 08:00 4.0 Weight Weight [ ] Input and Output I.O. Intake and Output 04/30/20 07:00 Intake Total 1080 ml Output Total 651 ml Balance 429 ml Intake Oral 1080 ml Output Urine Total 651 ml # Bowel Movements 1 Laboratory Labs Laboratory Tests Test 04/29/20 01:37 04/29/20 10:50 04/29/20 17:20 White Blood Count 7.9 x10^3/uL (4.0-11.0) Red Blood Count 4.31 x10^6/uL (4.30-5.70) Hemoglobin 13.8 g/dL (13.0-17.5) Hematocrit 43.5 % (39.0-53.0) Mean Corpuscular Volume 101 fL (79-100) Mean Corpuscular Hemoglobin 32 pg (25-35) Mean Corpuscular Hemoglobin Concent 32 g/dL (31-37) Red Cell Distribution Width 15.3 % (11.5-14.5) Platelet Count 119 x10^3/uL (140-400) Neutrophils (%) (Auto) 70 % (31-73) Lymphocytes (%) (Auto) 19 % (24-48) Monocytes (%) (Auto) 10 % (0-9) Eosinophils (%) (Auto) 1 % (0-3) Basophils (%) (Auto) 1 % (0-3) Neutrophils # (Auto) 5.5 x10^3uL (1.8-7.7) Lymphocytes # (Auto) 1.5 x10^3/uL (1.0-4.8) Monocytes # (Auto) 0.8 x10^3/uL (0.0-1.1) Eosinophils # (Auto) 0.1 x10^3/uL (0.0-0.7) Basophils # (Auto) 0.0 x10^3/uL (0.0-0.2) Prothrombin Time 14.2 SEC (9.4-11.4) Prothromb Time International Ratio 1.4 (0.9-1.1) Sodium Level 142 mmol/L (136-145) Potassium Level 4.0 mmol/L (3.5-5.1) Chloride Level 107 mmol/L (98-107) Carbon Dioxide Level 25 mmol/L (21-32) Anion Gap 10 (6-14) Blood Urea Nitrogen 16 mg/dL (8-26) Creatinine 1.8 mg/dL (0.7-1.3) Estimated GFR (Cockcroft-Gault) 45.6 BUN/Creatinine Ratio 9 (6-20) Glucose Level 170 mg/dL (70-99) Calcium Level 9.1 mg/dL (8.5-10.1) Magnesium Level 2.0 mg/dL (1.8-2.4) Total Bilirubin 0.8 mg/dL (0.2-1.0) Aspartate Amino Transf (AST/SGOT) 33 U/L (15-37) Alanine Aminotransferase (ALT/SGPT) 38 U/L (16-63) Alkaline Phosphatase 106 U/L (46-116) Troponin I Quantitative 0.044 ng/mL (0-0.055) 0.056 ng/mL (0-0.055) 0.045 ng/mL (0-0.055) HA-Buf-I-Type Natriuretic Peptide 3926 pg/mL (0-124) Total Protein 7.7 g/dL (6.4-8.2) Albumin 3.8 g/dL (3.4-5.0) Albumin/Globulin Ratio 1.0 (1.0-1.7) Triglycerides Level 40 mg/dL (0-150) Cholesterol Level 92 mg/dL (0-200) LDL Cholesterol, Calculated 34 mg/dL (0-100) VLDL Cholesterol, Calculated 8 mg/dL (0-40) Non-HDL Cholesterol Calculated 42 mg/dL (0-129) HDL Cholesterol 50 mg/dL (40-60) Cholesterol/HDL Ratio 1.0 Physical Exams HEENT: Neck Supple W Full Motion Chest: Symmetric Lungs: Clear to Auscultation, Other (diminished bases) Heart: RRR (a-pacing ) Abdomen: Soft N/T Extremities: No Edema Neurology: alert, oriented, follow commands, other (forgetful) Assessment Assessment 1. Acute respiratory failure with acute on chronic systolic CHF. Improved with IV diuresis 2. Chest pain, atypical. Trop peak 0.05. Most probable type II, demand ischemia 3. ICM; s/p AICD; follow with Dr. Ya cardiology at [facility] 4. CAD s/p PCI/stents. clinically stable 5. Hypertension; controlled 6. Hyperlipidemia; statin. LDL 34 7. CKD 8. PAFIB; on OAC with Xarelto. A-paced Recommendations Continue HF optimization with Entresto, Aldactone, Lasix Secondary prevention measures Outpatient stress test if none recently Follow up with primary auto clutch rebuilder with [facility] upon discharge. MARIA LUISA HARTMAN APRN Apr 30, 2020 08:11
[2020-04-30] MEDS: SACUBITRIL/VALSARTAN 49/51MG TABLET. PO SCH (08:22)
[2020-04-30 08:23] VITALS: BP 141/82
[2020-04-30] MEDS: MEXILETINE 150 MG CAPSULE PO SCH (08:23)
[2020-04-30] MEDS: SOTALOL 80 MG TABLET. PO SCH (08:23)
[2020-04-30] MEDS: FERROUS SULFATE 325 MG TABLET. PO SCH (08:23)
[2020-04-30] MEDS: CARVEDILOL 6.25 MG TABLET PO SCH (08:23)
[2020-04-30] MEDS: SPIRONOLACTONE 25 MG TABLET PO SCH (08:24)
[2020-04-30] MEDS: FUROSEMIDE 20 MG TABLET PO SCH (08:24)
[2020-04-30] MEDS ORDERED: RAMIPRIL PO SCH (09:00)
--- NOTE | 2020-04-30 10:54 | DS ---
DATE OF DISCHARGE: 04/30/2020 ATTENDING PHYSICIAN: Dr. Clayton. FINAL DISCHARGE DIAGNOSES: 1. Exacerbation of chronic obstructive pulmonary disease. 2. Chest pain, coronary ischemia ruled out. 3. Essential hypertension. 4. Known coronary artery disease. 5. Cardiac arrhythmia with AV sequential pacemaker. 6. Gastroesophageal reflux disease. 7. History of hepatitis A, B, and C. 8. Dementia. 9. Chronic renal insufficiency. 10. Anemia of chronic disease. 11. Congestive heart failure, compensated. 12. History of pulmonary emboli, on anticoagulation. HISTORY AND PHYSICAL: This is a 69-year-old gentleman living at home. He continues to smoke. He was admitted with increasing shortness of breath and an episode of chest pain, substernal in nature. He was admitted for further treatment and evaluation. No recent exposure to COVID. PHYSICAL EXAMINATION: Please see the dictated note. PERTINENT LABORATORY AND X-RAY STUDIES: Initial hemoglobin was 13.8 g/dL with white count of 7900. Three sets of enzymes were drawn. The first troponin was 0.04, second one peaked slightly 0.056, and the third one came back down to 0.04. Electrolytes within normal range. Creatinine is 1.8 mg/dL, which is baseline for him. Transaminases were normal. COURSE IN THE HOSPITAL: The patient was admitted to the ICU. He was placed on the monitoring. Chest pain subsided. Serial enzymes showed 1 slight elevation of the second troponin suggestive of a demand ischemia and not clinically relevant. He had no further symptoms. His respiratory status was improved. Cardiology consultation was obtained. Their recommendation was continuation of his home meds. On the second hospital day, he was asymptomatic. Vital signs were quite stable. He wanted to go home. I felt this is reasonable. His room air saturations were at 98%. He was afebrile, pulse was 60 and paced, and blood pressure was 141/82. At this time, there are no significant changes on his home medication. He should continue his Betapace 120 mg b.i.d., Lipitor 80 mg daily, ferrous sulfate daily, Lasix 20 mg daily, mexiletine 150 mg t.i.d., nitroglycerin p.r.n., Xarelto 10 mg daily, Entresto 97/103 one b.i.d., Aldactone 25 mg daily, and the Betapace as described. He had been on this Coreg, which I took the liberty of stopping. It was a small dose to begin with. He does not need to be on 2 beta blockers. Strong encouragement to avoid further tobacco use whether or not he will quit smoking after all these years remains to be seen. The patient will then follow up with his vp product at [facility]. He was discharged then from our hospital in stable condition with explicit instructions and followup care. SUKHWINDER ALEXANDRE MD DR: CRISTELA/hector JOB#: [id number] / [id number] MIGUEL Chi MD
--- NOTE | 2020-04-30 12:01 | NUR ---
DC note: Pt ambulated to cab, all questions answered. Mercedez updated on discontinued medication and follow up with [facility]iology. Pt alert and oriented, vitals stable. Pt has all belongings.
== END 2020-04-30 11:30 | disposition home or self-care (01) ==
LOC: ER 01:10 → ICU 04:19 → UNDOADMIN 04:19 → EDSTATUS 05:09 → ICU 05:16 → INTOOBSV 05:16
PROVIDERS: ADMIT Internal Medicine; ATTEND Internal Medicine
DX: J96.00 Acute respiratory failure, unspecified whether with hypoxia or hypercapnia (principal); Z20.828 Contact with and (suspected) exposure to other viral communicable diseases; J44.1 Chronic obstructive pulmonary disease with (acute) exacerbation; I25.10 Atherosclerotic heart disease of native coronary artery without angina pectoris; I13.0 Hypertensive heart and chronic kidney disease with heart failure and stage 1 through stage 4 chronic kidney disease, or unspecified chronic kidney disease; I50.23 Acute on chronic systolic (congestive) heart failure; N18.9 Chronic kidney disease, unspecified; D63.1 Anemia in chronic kidney disease; E78.5 Hyperlipidemia, unspecified; I73.9 Peripheral vascular disease, unspecified; K21.9 Gastro-esophageal reflux disease without esophagitis; R07.89 Other chest pain; I48.0 Paroxysmal atrial fibrillation; E78.00 Pure hypercholesterolemia, unspecified; I49.9 Cardiac arrhythmia, unspecified; I25.2 Old myocardial infarction; F03.90 Unspecified dementia, unspecified severity, without behavioral disturbance, psychotic disturbance, mood disturbance, and anxiety; F17.200 Nicotine dependence, unspecified, uncomplicated; Z86.711 Personal history of pulmonary embolism; Z95.0 Presence of cardiac pacemaker; Z79.01 Long term (current) use of anticoagulants; Z79.899 Other long term (current) drug therapy
CPT/HCPCS: 36415; 71045; 80053; 80061; 83735; 83880; 84484; 85025; 85610; 93005; 96374; 99285; G0378; J1940; U0003; G0379

== ENCOUNTER 2020-08-03 05:33 | Observation (INO) | payer OTHER, MEDICAID ==
[~2020-08-03] VITALS: Ht 177.8 cm; Wt 65.8 kg
[2020-08-03] VITALS (18 sets, daily range): BP systolic 120–180; BP diastolic 70–114
[~2020-08-03 05:33] MED LIST changes: +FURO20TA3 PO; -RAMI2.5C2 PO; +RAMI2.5C41 PO; +SACU1TAB4 PO
[2020-08-03] MEDS ORDERED: FUROSEMIDE 40 MG/4 ML VIAL ONE (05:40)
[2020-08-03] MEDS ORDERED: AZITHROMYCIN 500 MG in IV NORMAL SALINE 250ML 250 ML IV ONE (06:00)
[2020-08-03] MEDS ORDERED: IPRATRPIUM/ALBUTEROL 0.5/2.5MG 3 ML NEBU. NEB ONE (06:00)
[2020-08-03] MEDS ORDERED: methylPREDNISolone SOD SUCC PF 125 MG/2 ML VIAL. IV ONE (06:00)
[2020-08-03] MEDS ORDERED: FUROSEMIDE 40 MG/4 ML VIAL IVP ONE (06:00)
[2020-08-03] MEDS ORDERED: IV NORMAL SALINE 250ML 250 ML ONE (06:01)
[2020-08-03] MEDS ORDERED: cefTRIAXone SODIUM 1 GM VIAL ONE (06:01)
[2020-08-03] MEDS ORDERED: AZITHROMYCIN 500 MG VIAL. IV ONE (06:01)
[2020-08-03] MEDS ORDERED: IV NORMAL SALINE 50ML 50 ML ONE (06:01)
[2020-08-03 06:03] LABS: BASO % 1 % (0-3); EOS # 0.2 x10^3/uL (0.0-0.7); EOS % 3 % (0-3); HEMATOCRIT 43.6 % (39.0-53.0); HEMOGLOBIN 14.1 g/dL (13.0-17.5); LYMPH # 1.9 x10^3/uL (1.0-4.8); LYMPH % 28 % (24-48); MEAN CORPUSCULAR HEMOGLOBIN 32 pg (25-35); MEAN CORPUSCULAR HGB CONC 32 g/dL (31-37); MEAN CORPUSCULAR VOLUME 99 fL (79-100); MONO # 0.8 x10^3/uL (0.0-1.1); MONO % 13 % (0-9); NEUT # 3.8 x10^3uL (1.8-7.7); NEUT % 56 % (31-73); PLATELET COUNT 109 x10^3/uL (140-400); RED BLOOD COUNT 4.39 x10^6/uL (4.30-5.70); RED CELL DISTRIBUTION WIDTH 14.3 % (11.5-14.5); WHITE BLOOD COUNT 6.7 x10^3/uL (4.0-11.0)
--- NOTE | 2020-08-03 06:05 | RAD ---
Chest AP portable at 0540: Reason for examination: Respiratory failure. Comparison is made to previous study dated 04/29/2020. Pacemaker remains present on the left. Heart and mediastinum are unchanged. Lung moran continue show diffuse interstitial changes with some Axel B lines consistent with interstitial pulmonary edema. No consolidated infiltrates or pleural effusions are seen. No acute bony abnormalities are evident. IMPRESSION: Continued presence of diffuse interstitial changes with Axel B lines. These findings would suggest interstitial pulmonary edema. Electronically signed by: Pratima Bullard MD (08/03/2020 6:03 AM) BRIANA
[2020-08-03 06:07] LABS: BGAS PH 7.37 (7.35-7.46)
[2020-08-03 06:09] LABS: CREATININE 1.7 mg/dL (0.7-1.3); GFR 48.6; POTASSIUM 4.3 mmol/L (3.5-5.1)
[2020-08-03 06:22] LABS: ALBUMIN 3.6 g/dL (3.4-5.0); TOTAL BILIRUBIN 0.7 mg/dL (0.2-1.0); TOTAL PROTEIN 7.6 g/dL (6.4-8.2)
[2020-08-03 06:30] LABS: DIRECT BILIRUBIN 0.2 mg/dL (0.0-0.2)
--- NOTE | 2020-08-03 06:32 | PHYS DOC ---
Past History Past Medical History: Anemia, CAD, CHF, COPD, Dementia, GERD, Hypertension, MD, Renal Disease, Other Additional Past Medical Histor: RESP FAILURE, PE, HEP ABC, (BELKIS DALEY MD) Past Surgical History: Pacemaker Additional Past Surgical Histo: MULTIPLE STENT PLACEMENT (BELKIS DALEY MD) Smoking: Less than 1pk/day Alcohol Use: Occasionally Drug Use: None (BELKIS DALEY MD) General Adult EDM: Chief Complaint: SHORTNESS OF BREATH HPI: HPI: ".. I ... woke....up..... I....could....not ....breath...." Patient is a 70 year old masle who presents with above history and complaints of severe respiratory distress. Patient found by paramedics to be hypoxic and was started on high percent nonrebreather and additional 6 L of nasal cannula oxygen. Patient also received in line DuoNeb in route. Patient has history of previous episodes of respiratory failure. Patient does continue to smoke. Patient has history of COPD, coronary artery disease and MD x2., Hypertension, dysrhythmia, GERD, hepatitis A, B, and C, dementia, renal insufficiency, anemia of chronic disease, CHF, pulmonary embolisms, and DVTs. Patient denies any history of recent travel or specific ill contacts. No history of fever or chills. Patient presented with severe respiratory distress, hypertension and hypoxia. Patient in the previous episodes of story failure responded to diu resis and BiPAP. Patient was started on BiPAP and oxygen was titrated appropriately. Patient did receive 40 of Lasix IV. (BELKIS DALEY MD) Review of Systems: Review of Systems: Remainder of review of systems limited due to patient's respiratory failure Respiratory: Complains of severe shortness of breath (BELKIS DALEY MD) Family History: Family History: Noncontributory to presentation (BELKIS DALEY MD) Current Medications: Current Meds: Current Medications Medications (Trade) Dose Ordered Sig/Paula Start Time Stop Time Status Last Admin Dose Admin Albuterol/ Ipratropium (Duoneb) 3 ml 1X ONCE 08/03/20 06:00 08/03/20 06:01 DC Azithromycin (Zithromax) 500 mg STK-MED ONCE 08/03/20 06:01 08/03/20 06:01 DC Azithromycin 500 mg/Sodium Chloride 250 ml @ 250 mls/hr 1X ONCE 08/03/20 06:00 08/03/20 06:59 08/03/20 06:00 250 MLS/HR Ceftriaxone Sodium 1 gm/ Sodium Chloride 50 ml @ 100 mls/hr 1X ONCE 08/03/20 06:00 08/03/20 06:29 DC 08/03/20 06:00 100 MLS/HR Ceftriaxone Sodium (Rocephin) 1 gm STK-MED ONCE 08/03/20 06:01 08/03/20 06:02 DC Furosemide (Lasix) 40 mg 1X ONCE 08/03/20 06:00 08/03/20 06:01 DC 08/03/20 05:26 40 MG Methylprednisolone Sodium Succinate (SOLU-Medrol 125MG VIAL) 125 mg 1X ONCE 08/03/20 06:00 08/03/20 06:01 DC 08/03/20 06:00 125 MG Sodium Chloride 50 ml @ As Directed STK-MED ONCE 08/03/20 06:01 08/03/20 06:01 DC (BELKIS DALEY MD) Allergies: Allergies: Allergies Coded Allergies Type Severity Reaction Last Updated Verified enalapril Allergy Intermediate UPPER LIP SWELLING 04/29/20 Yes (BELKIS DALEY MD) Physical Exam: PE: Constitutional: In acute respiratory distress, HENT: Normocephalic, atraumatic, bilateral external ears normal, oropharynx moist, no oral exudates, nose swollen turbinates clear rhinorrhea Eyes: PERRLA, EOMI, conjunctiva normal, no discharge. [] Neck: Normal range of motion, no tenderness, supple, no stridor. JVD in the sitting position Cardiovascular tachycardia, PMI to left, monitor shows pacing as well as dysrhythmia Lungs & Thorax: Bilateral breath equal apex with scattered wheezes and crackles throughout on auscultation []. Pacer defibrillator on the left. Abdomen: Bowel sounds decreased, soft, no tenderness, no masses, no pulsatile masses. [] Circumcised male testicles descended Skin: Diaphoretic, cyanotic fingers and toe [] Extremities: No tenderness, no cyanosis, no clubbing, ROM intact, no edema. [] Arthritic changes. No cording Neurologic: Alert and oriented X 3, moves all extremities on request, appears to have distal sensory, no gross focal defects noted Psychologic: Affect anxious, panicked, due to respiratory distress (BELKIS DALEY MD) Current Patient Data: Labs: Laboratory Tests Test 08/03/20 05:55 Blood pH 7.37 (7.35-7.46) Blood Gas PCO2 36 mmHg (35-46) Blood Gas PO2 84 mmHg (80-100) Blood Gas HCO3 21 mmol/L (21-28) Arterial Bld O2 Saturation (Calc) 96 % (92-99) FiO2 40 % Vital Signs: Vital Signs Date Time Temp Pulse Resp B/P (MAP) Pulse Ox O2 Delivery O2 Flow Rate FiO2 08/03/20 06:13 100 BiPAP/CPAP 08/03/20 05:37 97.6 73 30 180/89 (119) 15.0 (BELKIS DALEY MD) EKG: EKG: EKG shows a ventricular rate of 74 however has ventricular premature complexes and bigeminy. Does have pacer spikes abnormal EKG [] (BELKIS DALEY MD) Radiology/Procedures: Radiology/Procedures: My interpretation chest x-ray shows cardiomegaly and cephalization consistent with flash pulmonary edema. [][place] [id number] IMAGING REPORT Signed PATIENT: LISY BENNETT ACCOUNT: [id number] : 1950 LOCATION: ER AGE: 70 SEX: M EXAM STATUS: REG ER ORD. PHYSICIAN: BELKIS DALEY MD REASON: respiratory failure PROCEDURE: PORTABLE CHEST 1V Chest AP portable at 0540: Reason for examination: Respiratory failure. Comparison is made to previous study dated 04/29/2020. Pacemaker remains present on the left. Heart and mediastinum are unchanged. Lung moran continue show diffuse interstitial changes with some Axel B lines consistent with interstitial pulmonary edema. No consolidated infiltrates or pleural effusions are seen. No acute bony abnormalities are evident. IMPRESSION: Continued presence of diffuse interstitial changes with Axel B lines. These findings would suggest interstitial pulmonary edema. Electronically signed by: Mary Hunt MD (08/03/2020 6:03 AM) [facility] DICTATED AND SIGNED BY: MARY HUNT MD DATE: 08/03/20 0600 CC: ANGELO HIGGINBOTHAM DO; BELKIS DALEY MD; FELICITY RESTREPO MD ~MTH0 0 (BELKIS DALEY MD) Heart Score: HEART Score for Chest Pain: HEART Score for Chest Pain Response (Comments) Value History Highly Suspicious [address] Depression 2 Age > 65 2 Risk Factors >3 Risk Factors or Hx CAD 2 Total 8 Risk Factors: Risk Factors: DM, Current or recent (<one month) smoker, HTN, HLP, family history of CAD, obesity. Risk Scores: Score 0 - 3: 2.5% MACE over next 6 weeks - Discharge Home Score 4 - 6: 20.3% MACE over next 6 weeks - Admit for Clinical Observation Score 7 - 10: 72.7% MACE over next 6 weeks - Early Invasive Strategies (BELKIS DALEY MD) C/O Chest Pain: No HEART Score for Chest Pain: HEART Score for Chest Pain Response (Comments) Value History Moderately Suspicious 1 ECG Normal 0 Age > 65 2 Risk Factors >3 Risk Factors or Hx CAD 2 Troponin < Normal Limit 0 Total 5 (ANGELO HIGGINBOTHAM DO) Course & Med Decision Making: Course & Med Decision Making Pertinent Labs and Imaging studies reviewed. (See chart for details) Discussed presentation, testing and tx plan with Dr Higginbotham.. He will make disposition on pt. Critical care 90 min- Vent /CPAP management and eval. Labs pending at shift change Impression: 1. Acute respiratory failure-hypoxia 2. Flash pulmonary edema/CHF 3. Accelerated hypertension 4. History of renal insufficiency-Chronic 5. History of COPD 6. History of anemia 7. Continued tobacco abuse [] (BELKIS DALEY MD) Course & Med Decision Making I assumed care of patient after comprehensive signout from off going physician ER course reviewed at length, I then reevaluated patient personally and agree with note as described. Clinical presentation much improved since arrival, exhibiting decreased work of breathing with adequate diuresis and improvement in respiratory distress Nonetheless, patient does appear fluid overloaded and given his high risk for potential decline if discharged home, I recommended patient be admitted for further inpatient medical management I contacted Dr. Clayton and case was discussed at length, he agreed need for admission accepted patient into ICU setting at [facility] I updated patient on proposed plan of care and he was amenable. Patient confirmed he was full CODE STATUS. All questions and concerns addressed prior to ER transport to [facility] for admission Electronically signed, Angelo Higginbotham DO (ANGELO HIGGINBOTHAM DO) Hari Disclaimer: Hari Disclaimer: This electronic medical record was generated, in whole or in part, using a voice recognition dictation system. (BELKIS DALEY MD) Departure Departure: Impression: Primary Impression: Pulmonary edema Additional Impressions: Respiratory distress Hypoxia Amphetamine abuse CAD (coronary artery disease) of artery bypass graft Disposition: ADMITTED INPT THIS HOSP Admitting Physician: Isadora Clayton (ANGELO HIGGINBOTHAM DO) Condition: STABLE Referrals: FELICITY RESTREPO MD (PCP) Hari Disclaimer This chart was dictated in whole or in part using Voice Recognition software in a busy, high-work load, and often noisy Emergency Department environment. It may contain unintended and wholly unrecognized errors or omissions. (BELKIS DALEY MD) BELKIS DALEY MD Aug 03, 2020 06:32 ANGELO HIGGINBOTHAM DO Aug 03, 2020 07:08
[2020-08-03 07:07] LABS: BACTERIA,URINE 0 /HPF (0-FEW); BILIRUBIN,URINE NEG (NEG); CLARITY,URINE CLEAR; COLOR,URINE YELLOW; GLUCOSE,URINE NEG (NEG); GRANULAR CASTS,URINE OCC /HPF; HYALINE CASTS, URINE OCC /HPF; NITRITE,URINE NEG (NEG); SQUAMOUS EPITHELIAL CELL,UR FEW /LPF; WBC,URINE OCC /HPF (0-4)
[2020-08-03 07:10] LABS: BARBITURATES NEG (NEG); BENZODIAZEPINES NEG (NEG); CANNABINOIDS NEG (NEG); COCAINE NEG (NEG); METHADONE NEG (NEG); OPIATES NEG (NEG); PHENCYCLIDINE NEG (NEG)
[2020-08-03 07:29] LABS: AMPHETAMINE/METHAMPHETAMINE POS (NEG)
[2020-08-03] MEDS ORDERED: CARV6.2541 PO (09:25)
[2020-08-03] MEDS: SOTALOL 80 MG TABLET. PO SCH (18:16)
--- NOTE | 2020-08-03 19:05 | HP ---
ADMIT DATE: 08/03/2020 HISTORY OF PRESENT ILLNESS: The patient is a 70-year-old -[place] male patient who came to the Emergency Room complaining of shortness of breath. Apparently, the patient was found by mechanic to be hypoxic and was started on high % nonrebreather mask and additional 6 liters by nasal cannula. According to him, he woke up and went to the bathroom. When he went back to his bed, he became extremely short of breath. He has also chest pain, mostly in the left side, apparently has had similar episodes before, respiratory failure. He does continue to smoke. He has a history of COPD, coronary artery disease and myocardial infarction x 2. The patient was evaluated in the Emergency Room and apparently on a similar presentation before he was diuresed and was started on BiPAP and apparently has responded to same measures. He was given 40 mg of IV Lasix and started on BiPAP and his symptom has improved. The patient was admitted to ICU for close monitoring. PAST MEDICAL HISTORY: Significant for coronary artery disease, hypertension, hyperlipidemia, peripheral arterial disease, congestive heart failure, pulmonary emboli, gastroesophageal reflux disease, anemia, hepatitis A, B and C as well as dementia, chronic renal insufficiency and chronic obstructive pulmonary disease. PAST SURGICAL HISTORY: Significant for AICD placement, coronary artery disease, status post angioplasty and stent deployment. ALLERGIES: He is allergic to ENALAPRIL. FAMILY HISTORY: Noncontributory. Both parents are . He is the only child. SOCIAL HISTORY: He continued to smoke. He drinks alcohol occasionally. Has used some marijuana at times, but denied using any cocaine, amphetamine or heroin. MEDICATIONS: He is currently on following medications: He is on ferrous sulfate 325 mg once a day, rivaroxaban 10 mg once a day, mexiletine 150 mg 3 times a day, atorvastatin calcium 80 mg at bedtime, nitroglycerin 0.4 mg sublingually every 5 minutes. He is on carvedilol 6.25 mg twice a day, sotalol 120 mg twice a day. He is on Entresto 97/103 twice a day, spironolactone 25 mg once a day and furosemide 20 mg daily. REVIEW OF SYSTEMS: As per history of present illness. PHYSICAL EXAMINATION: GENERAL: On arrival to the Emergency Room, apparently, the patient was extremely tachypneic, orthopneic. There was no pallor, jaundice, cyanosis or thyromegaly. No jugular venous distention. No lower limb edema. VITAL SIGNS: His heart rate was 75, blood pressure was 189/103. His temperature was 97.6, respiratory rate was 25, and oxygen saturation was 100% on BiPAP machine. HEAD, EYES, EARS, NOSE AND THROAT: Showed normocephalic, atraumatic. NECK: Supple. HEART: Normal first and second heart sounds. No gallop, rub or murmur. CHEST: Shows central trachea, equal bilateral expansion, has scattered wheezing and crackles throughout on auscultation. He has AICD in the left infraclavicular area. ABDOMEN: Slightly distended, soft, nontender. NEUROLOGIC: He has somewhat hoarse voice, difficult to understand at times, but all his cranial nerves are intact. EXTREMITIES: He moves extremities without difficulty. LABORATORY DATA: His lab work on admission showed a white cell count of 6,700, hemoglobin 14, hematocrit 44, MCV 99 and platelet count of 109,000. His chemistry showed that his serum sodium 141, potassium 4.3, chloride 107, bicarbonate 25, anion gap of 9, BUN 18, creatinine 1.7, estimated GFR was 48 mL per minute. His glucose was 168, calcium was 9, magnesium 2. Total bilirubin, AST, ALT, alkaline phosphatase were normal. CK was 153. Beta natriuretic peptide was 2793. Total protein was 7.6, albumin was 3.6. His arterial blood gas showed a pH of 7.37, pCO2 of 36, pO2 of 84, bicarbonate 21 and oxygen saturation was 96% on FiO2 of 40%. His prothrombin time was 13.5, INR 1.3, aPTT was 25 and D-dimer was 1.66. His urinalysis showed the urine was yellow, clear with a pH of 6, specific gravity of 1.025, urine protein was 100 mg/dL. The urine was negative for glucose, ketones, trace of blood, negative for nitrite and bilirubin. The urine was negative for leukocyte esterase. There were 3-5 rbc's, occasional wbc's, and very few bacteria. His chest x-ray showed that the patient has pacemaker remains present and the left heart and mediastinum are unchanged. Lung moran continued to show diffuse interstitial changes with some Axel B lines consistent with interstitial pulmonary edema. No consolidated infiltrate or pleural effusion seen. No acute bony abnormalities are detected. ASSESSMENT AND PLAN: The patient was admitted with acute hypoxic respiratory failure, acute congestive heart failure and pulmonary edema. Currently, although, he claimed that he is not using amphetamine, his urine toxic screen was positive for amphetamine and methamphetamine. My plan is to obviously reconcile all his medication and consult the Cardiology team and decide the further management accordingly. I will obviously repeat all his labs again tomorrow, consult the Cardiology team and if he remains stable, he might be able to be discharged home tomorrow. MIGUEL VALDIVIA MD DR: MERVIN/hector JOB#: [id number] / [id number]
[2020-08-03 19:33] LABS: ALBUMIN 3.7 g/dL (3.4-5.0); ALBUMIN/GLOBULIN RATIO 0.9 (1.0-1.7); CALCIUM 9.5 mg/dL (8.5-10.1); CREATININE 1.7 mg/dL (0.7-1.3); GFR 48.6; POTASSIUM 4.4 mmol/L (3.5-5.1); TOTAL BILIRUBIN 0.5 mg/dL (0.2-1.0); TOTAL PROTEIN 7.9 g/dL (6.4-8.2)
[2020-08-03] MEDS ORDERED: ATORVASTATIN CALCIUM 20 MG TABLET PO SCH (21:00)
[2020-08-03] MEDS: MEXILETINE 150 MG CAPSULE PO SCH (21:26)
[2020-08-03] MEDS: SACUBITRIL/VALSARTAN 49/51MG TABLET. PO SCH (21:27)
[2020-08-03 21:34] LABS: THYROID STIM HORMONE (TSH) 2.152 uIU/mL (0.358-3.740)
[2020-08-04] VITALS (9 sets, daily range): BP systolic 161–174; BP diastolic 88–110
[2020-08-04] MEDS: CARVEDILOL 6.25 MG TABLET PO SCH ×2 (06:31→09:49)
[2020-08-04] MEDS ORDERED: FERROUS SULFATE 325 MG TABLET. PO SCH (08:00)
--- NOTE | 2020-08-04 08:12 | PDOC2 ---
MARIA LUISA HARTMAN PASTRY COOK APPRENTICE 08/04/20 0812: CARDIAC CONSULT DATE OF CONSULT DOS: DATE: 08/04/20 TIME: 08:04 REASON FOR CONSULT Reason for Consult Near syncope REFERRING PHYSICIAN Referring Physician Dr. Clayton SOURCE Source: Chart review, Patient HPI History of Present Illness This is a 70 yo male who presented secondary to shortness of breath. Patient reports he got up to use the restroom yesterday and when he ambulate back to his room, he began feeling his heart racing and became very short of breath. Continue to be short of breath so EMS was called. PAST MEDICAL HISTORY Past Medical History Cardiovascular: CAD, CHF, HTN, hyperipidemia, Other (PAD ) Pulmonary: Other (PE) CENTRAL NERVOUS SYSTEM: Dementia GI: GERD Heme/Onc: Anemia NOS Hepatobiliary: Hep A/B/C (C) Renal/: Chronic renal insuff PAST SURGICAL HISTORY Past Surgical History: Pacemaker (AICD) FAMILY HISTORY Family History Heart Disease, Hypertension SOCIAL HISTORY Social History Smoke: <1 pack per day ALCOHOL: none Drugs: Methamphetamine and marijuana use Lives: with Family (girlfriend ) CURRENT MEDICATIONS Current Medications Current Medications Furosemide (Lasix) 40 mg STK-MED ONCE .ROUTE ; Start 08/03/20 at 05:40; Stop 08/03/20 at 05:40; Status DC Furosemide (Lasix) 40 mg 1X ONCE IVP Last administered on 08/03/20at 05:26; Start 08/03/20 at 06:00; Stop 08/03/20 at 06:01; Status DC Albuterol/ Ipratropium (Duoneb) 3 ml 1X ONCE NEB Last administered on 08/03/20at 06:35; Start 08/03/20 at 06:00; Stop 08/03/20 at 06:01; Status DC Methylprednisolone Sodium Succinate (SOLU-Medrol 125MG VIAL) 125 mg 1X ONCE IV Last administered on 08/03/20at 06:00; Start 08/03/20 at 06:00; Stop 08/03/20 at 06:01; Status DC Ceftriaxone Sodium 1 gm/ Sodium Chloride 50 ml @ 100 mls/hr 1X ONCE IV Last administered on 08/03/20at 06:00; Start 08/03/20 at 06:00; Stop 08/03/20 at 06:29; Status DC Azithromycin 500 mg/Sodium Chloride 250 ml @ 250 mls/hr 1X ONCE IV Last administered on 08/03/20at 06:00; Start 08/03/20 at 06:00; Stop 08/03/20 at 06:59; Status DC Sodium Chloride 250 ml @ As Directed STK-MED ONCE .ROUTE ; Start 08/03/20 at 06:01; Stop 08/03/20 at 06:01; Status DC Sodium Chloride 50 ml @ As Directed STK-MED ONCE .ROUTE ; Start 08/03/20 at 06:01; Stop 08/03/20 at 06:01; Status DC Azithromycin (Zithromax) 500 mg STK-MED ONCE IV ; Start 08/03/20 at 06:01; Stop 08/03/20 at 06:01; Status DC Ceftriaxone Sodium (Rocephin) 1 gm STK-MED ONCE .ROUTE ; Start 08/03/20 at 06:01; Stop 08/03/20 at 06:02; Status DC Carvedilol (Coreg) 6.25 mg BIDWMEALS PO Last administered on 08/04/20at 06:31; Start 08/04/20 at 08:00 Ferrous Sulfate (Feosol) 325 mg DAILY08 PO ; Start 08/04/20 at 08:00 Furosemide (Lasix) 20 mg DAILY PO ; Start 08/04/20 at 09:00 Mexiletine HCl (Mexitil) 150 mg TID PO Last administered on 08/03/20at 21:26; Start 08/03/20 at 21:00 Rivaroxaban (Xarelto) 10 mg DAILY16 PO ; Start 08/04/20 at 16:00 Sotalol HCl (Betapace) 120 mg BID PO ; Start 08/03/20 at 21:00 Spironolactone (Aldactone) 25 mg DAILY PO ; Start 08/04/20 at 09:00 Atorvastatin Calcium (Lipitor) 80 mg QHS PO Last administered on 08/03/20at 21:27; Start 08/03/20 at 21:00 Sacubitril/ Valsartan (Entresto 49 Mg-51 Mg) 2 tab BID PO Last administered on 08/03/20at 21:27; Start 08/03/20 at 21:00 Influenza Virus Vaccine Quadrival (Fluzone Quad Syringe) 0.5 ml ONCE ONCE VAX IM ; Start 08/04/20 at 09:00; Stop 08/04/20 at 09:01 Active Scripts Active Reported Carvedilol (Carvedilol) 6.25 Mg Tablet 6.25 Mg PO BIDWMEALS Furosemide 20 Mg Tablet 20 Mg PO DAILY Entresto 97 mg-103 mg Tablet (Sacubitril/Valsartan) 1 Each Tablet 1 Each PO BID Xarelto (Rivaroxaban) 10 Mg Tablet 10 Mg PO DAILY16 Spironolactone 25 Mg Tablet 25 Mg PO DAILY Water pill LAST DOSE GIVEN: DATE: TIME: NEXT DOSE DUE: DATE: TIME: Sotalol (Sotalol Hcl) 80 Mg Tablet 120 Mg PO BID Irregular heartbeat LAST DOSE GIVEN: DATE: TIME: NEXT DOSE DUE: DATE: TIME: Mexiletine Hcl 150 Mg Capsule 150 Mg PO TID Irregular heartbeat LAST DOSE GIVEN: DATE: TIME: NEXT DOSE DUE: DATE: TIME: NITROGLYCERIN SubLingual (Nitroglycerin) 0.4 Mg Tab.subl 0.4 Mg SL PAIN PRN As needed for chest pain LAST DOSE GIVEN: DATE: TIME: NEXT DOSE DUE: DATE: TIME: Ferrous Sulfate 325 Mg Tablet 325 Mg PO DAILY Iron supplement LAST DOSE GIVEN: DATE: TIME: NEXT DOSE DUE: DATE: TIME: Atorvastatin Calcium 80 Mg Tablet 80 Mg PO QHS High cholesterol LAST DOSE GIVEN: DATE: TIME: NEXT DOSE DUE: DATE: TIME: ALLERGIES Allergies: Coded Allergies: enalapril (Verified Allergy, Intermediate, UPPER LIP SWELLING, 04/29/20) SEE ER VISIT 09/18/17 PT TOLERATES OTHER ACEI ROS Review of Systems 14 point ROS conducted with pertinent positives noted above in HPI PHYSICAL EXAM Physical Exam General: Alert, Cooperative, No acute distress, Other (oriented to person and place) HEENT: Atraumatic Lungs: Other (diminished bases) Heart: Regular rate (v-paced with underling SR ) Abdomen: Soft Extremities: No edema, Normal pulses Neuro: Normal speech, Sensation intact Psych/Mental Status: Mood NL MUSCULOSKELETAL: Osteoarthritic changes both hands VITALS Vital Signs Vital Signs Date Time Temp Pulse Resp B/P (MAP) Pulse Ox O2 Delivery O2 Flow Rate FiO2 08/04/20 06:40 69 16 167/110 (129) 93 Room Air 08/04/20 05:50 97.4 08/03/20 13:00 4.0 LABS LABS Laboratory Tests Test 08/03/20 05:45 08/03/20 05:55 08/03/20 06:04 08/03/20 06:10 White Blood Count 6.7 x10^3/uL (4.0-11.0) Red Blood Count 4.39 x10^6/uL (4.30-5.70) Hemoglobin 14.1 g/dL (13.0-17.5) Hematocrit 43.6 % (39.0-53.0) Mean Corpuscular Volume 99 fL (79-100) Mean Corpuscular Hemoglobin 32 pg (25-35) Mean Corpuscular Hemoglobin Concent 32 g/dL (31-37) Red Cell Distribution Width 14.3 % (11.5-14.5) Platelet Count 109 x10^3/uL (140-400) Neutrophils (%) (Auto) 56 % (31-73) Lymphocytes (%) (Auto) 28 % (24-48) Monocytes (%) (Auto) 13 % (0-9) Eosinophils (%) (Auto) 3 % (0-3) Basophils (%) (Auto) 1 % (0-3) Neutrophils # (Auto) 3.8 x10^3uL (1.8-7.7) Lymphocytes # (Auto) 1.9 x10^3/uL (1.0-4.8) Monocytes # (Auto) 0.8 x10^3/uL (0.0-1.1) Eosinophils # (Auto) 0.2 x10^3/uL (0.0-0.7) Basophils # (Auto) 0.0 x10^3/uL (0.0-0.2) Prothrombin Time 13.5 SEC (9.4-11.4) Prothromb Time International Ratio 1.3 (0.9-1.1) Activated Partial Thromboplast Time 25 SEC (23-33) D-Dimer (Nahed) 1.66 mg/L (0.00-0.50) Sodium Level 141 mmol/L (136-145) Potassium Level 4.3 mmol/L (3.5-5.1) Chloride Level 107 mmol/L (98-107) Carbon Dioxide Level 25 mmol/L (21-32) Anion Gap 9 (6-14) Blood Urea Nitrogen 18 mg/dL (8-26) Creatinine 1.7 mg/dL (0.7-1.3) Estimated GFR (Cockcroft-Gault) 48.6 Glucose Level 168 mg/dL (70-99) Calcium Level 9.0 mg/dL (8.5-10.1) Magnesium Level 2.0 mg/dL (1.8-2.4) Total Bilirubin 0.7 mg/dL (0.2-1.0) Direct Bilirubin 0.2 mg/dL (0.0-0.2) Aspartate Amino Transf (AST/SGOT) 38 U/L (15-37) Alanine Aminotransferase (ALT/SGPT) 45 U/L (16-63) Alkaline Phosphatase 105 U/L (46-116) Creatine Kinase 153 U/L (39-308) Troponin I Quantitative 0.035 ng/mL (0-0.055) MZ-Nxh-R-Type Natriuretic Peptide 2793 pg/mL (0-124) Total Protein 7.6 g/dL (6.4-8.2) Albumin 3.6 g/dL (3.4-5.0) Lipase 95 U/L (73-393) Blood Gas pH 7.37 (7.35-7.46) Blood Gas PCO2 36 mmHg (35-46) Blood Gas PO2 84 mmHg (80-100) Blood Gas HCO3 21 mmol/L (21-28) Arterial Bld O2 Saturation (Calc) 96 % (92-99) FiO2 40 % Urine Collection Type Unknown Urine Color Yellow Urine Clarity Clear Urine pH 6.0 Urine Specific [place] 1.025 Urine Protein 100 mg/dl (NEG-TRACE) Urine Glucose (UA) Neg mg/dL (NEG) Urine Ketones (Stick) Neg mg/dL (NEG) Urine Blood Trace (NEG) Urine Nitrite Neg (NEG) Urine Bilirubin Neg (NEG) Urine Urobilinogen Dipstick 1.0 mg/dL (0.2 mg/dL) Urine Leukocyte Esterase Neg (NEG) Urine RBC 3-5 /HPF (0-2) Urine WBC Occ /HPF (0-4) Urine Squamous Epithelial Cells Few /LPF Urine Renal Epithelial Cells Occ /LPF Urine Bacteria 0 /HPF (0-FEW) Urine Hyaline Casts Occ /HPF Urine Granular Casts Occ /HPF Urine Mucus Slight /LPF Urine Opiates Screen Neg (NEG) Urine Methadone Screen Neg (NEG) Urine Barbiturates Neg (NEG) Urine Phencyclidine Screen Neg (NEG) Urine Amphetamine/Methamphetamine Pos (NEG) Urine Benzodiazepines Screen Neg (NEG) Urine Cocaine Screen Neg (NEG) Urine Cannabinoids Screen Neg (NEG) Urine Ethyl Alcohol Neg (NEG) Lactic Acid Level 2.6 mmol/L (0.4-2.0) Test 08/03/20 07:00 08/03/20 10:15 08/03/20 13:50 Sodium Level 142 mmol/L (136-145) Potassium Level 4.4 mmol/L (3.5-5.1) Chloride Level 106 mmol/L (98-107) Carbon Dioxide Level 28 mmol/L (21-32) Anion Gap 8 (6-14) Blood Urea Nitrogen 24 mg/dL (8-26) Creatinine 1.7 mg/dL (0.7-1.3) Estimated GFR (Cockcroft-Gault) 48.6 BUN/Creatinine Ratio 14 (6-20) Glucose Level 151 mg/dL (70-99) Calcium Level 9.5 mg/dL (8.5-10.1) Total Bilirubin 0.5 mg/dL (0.2-1.0) Aspartate Amino Transf (AST/SGOT) 29 U/L (15-37) Alanine Aminotransferase (ALT/SGPT) 44 U/L (16-63) Alkaline Phosphatase 101 U/L (46-116) Total Protein 7.9 g/dL (6.4-8.2) Albumin 3.7 g/dL (3.4-5.0) Albumin/Globulin Ratio 0.9 (1.0-1.7) Lactic Acid Level 2.0 mmol/L (0.4-2.0) Troponin I Quantitative 0.041 ng/mL (0-0.055) 0.039 ng/mL (0-0.055) Triglycerides Level 47 mg/dL (0-150) Cholesterol Level 98 mg/dL (0-200) LDL Cholesterol, Calculated 38 mg/dL (0-100) VLDL Cholesterol, Calculated 9 mg/dL (0-40) Non-HDL Cholesterol Calculated 47 mg/dL (0-129) HDL Cholesterol 51 mg/dL (40-60) Cholesterol/HDL Ratio 1.0 Thyroid Stimulating Hormone (TSH) 2.152 uIU/mL (0.358-3.740) ECHOCARDIOGRAM Echocardiogram <Conclusion> There is moderate to severe asymmetric left ventricular hypertrophy. Left ventricle systolic function is severely impaired. The Ejection Fraction is 15-20%. There is mild diastolic dysfunction. The right ventricle is normal size. Doppler and Color Flow revealed trace to mild mitral regurgitation. Doppler and Color Flow revealed trace tricuspid regurgitation. The PA pressure was estimated at 17 mmHg. There is a trace loculated anterior pericardial effusion. DATE: 09/10/15 0904 ASSESSMENT/PLAN Assessment/Plan 1. Acute respiratory failure with a/c CHF 2. Acute on chronic systolic CHF 3. ICM; s/p AICD; follow with Dr. Ya cardiology at [facility] 4. CAD s/p PCI/stents 5. Hypertension; controlled 6. Hyperlipidemia; statin 7. CKD 8. PAFIB; on OAC with Xarelto. Maintaining SR with Sotolal 9. Substance abuse; UDS + methamphetamines 10. Tobaccoism Recommendations Mild diuresis with monitoring of renal function Continue HF optimization with Entresto, Aldactone, Lasix Device interrogation Obtain recent stress test and echo from [facility] Secondary prevention Xarelto for stroke prophylaxis Possible discharge home later today Discussed, encouraged cessation from tobacco and recreational drug use F/u with [facility] Cardiology upon discharge VERNELL CURTIS MD 08/04/20 1705: CARDIAC CONSULT ASSESSMENT/PLAN Assessment/Plan Patient seen and examined. Agree with above nurse practitioner note. 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 He is doing very well. Recent stress test and echocardiogram reviewed. Discussed drug cessation. Follow-up with primary grades 1 thru 5 teacher. MARIA LUISA HARTMAN APRN Aug 04, 2020 08:12 VERNELL CURTIS MD Aug 04, 2020 17:05
[2020-08-04] MEDS ORDERED: FUROSEMIDE 20 MG/2 ML VIAL IVP ONE (08:45)
[2020-08-04] MEDS ORDERED: FLU VACC QS 2020-21(6MOS+)/PF 0.5 ML SYRINGE. VAX IM ONE (09:00)
[2020-08-04] MEDS: MEXILETINE 150 MG CAPSULE PO SCH ×2 (09:00→14:00)
[2020-08-04] MEDS ORDERED: SPIRONOLACTONE 25 MG TABLET PO SCH (09:00)
[2020-08-04] MEDS ORDERED: FUROSEMIDE 20 MG TABLET PO SCH (09:00)
[2020-08-04] MEDS: SOTALOL 80 MG TABLET. PO SCH (09:50)
--- NOTE | 2020-08-04 09:53 | EKG ---
[address] [address] Test Date: 2020-08-03 Test Time: 05:57:04 Pat Name: LISY BENNETT Department: Room: [facility] 1 Gender: M Problem Manager: : [id number] Requested By: BELKIS DALEY Order Number: [id number] Reading MD: Alejandro Borja MD Measurements Intervals [place] Rate: 74 P: -3 ID: [id number] QRS: -86 QRSD: 90 T: 80 QT: 458 QTc: 509 Interpretive Statements SR PVC Electronically Signed On 08-04-2020 14:34:20 CDT by Alejandro Borja MD
[2020-08-04] MEDS: SACUBITRIL/VALSARTAN 49/51MG TABLET. PO SCH (10:26)
[2020-08-04 15:22] LABS: CALCIUM 9.6 mg/dL (8.5-10.1); CREATININE 1.6 mg/dL (0.7-1.3); GFR 52.1; POTASSIUM 4.1 mmol/L (3.5-5.1)
[2020-08-04] MEDS ORDERED: RIVAROXABAN 10 MG TABLET. PO SCH (16:00)
--- NOTE | 2020-08-04 16:22 | DS ---
DATE OF DISCHARGE: HOSPITAL COURSE: The patient is a 70-year-old -[place] male patient who came to the Emergency Room with shortness of breath and therefore, he called the ambulance and was brought to the Emergency Room where he was found to be in acute respiratory failure with acute on chronic systolic congestive heart failure. He was treated with IV Lasix and BiPAP and he did actually subsequently very well and has been up and about. It transpired that he has also abusing amphetamine and once stabilized, the patient was discharged home to follow with his primary casino manager, Dr. Prescott, transpired that he was seen in their office about a week ago and has had a stress test and echocardiogram. The ejection fraction was 35-40%. PHYSICAL EXAMINATION: GENERAL: When I saw him this afternoon, he was sitting on the edge of the bed comfortably, in no apparent respiratory distress. No pallor, jaundice, cyanosis or thyromegaly. No jugular venous distension. No limb edema. VITAL SIGNS: His heart rate was 65, blood pressure was 164/104, temperature was 98.5, respiratory rate was 14 and oxygen saturation was 96%. HEAD, EYES, EARS, NOSE AND THROAT: Showed normocephalic, atraumatic. NECK: Supple. HEART: Showed normal first and second heart sounds. No gallop or murmur. CHEST: Clear to auscultation. No crepitation or rhonchi. ABDOMEN: Slightly distended, soft, nontender. NEUROLOGIC: He was grossly intact. LABORATORY DATA: This morning showed a serum sodium 138, potassium 4.1, chloride 100, bicarbonate 29, anion gap of 9, BUN 20, creatinine 1.6, estimated GFR was 52 mL per minute, glucose 145, calcium was 9.6. DISCHARGE MEDICATIONS: The patient was discharged home to continue on atorvastatin calcium 80 mg at bedtime, carvedilol 6.25 mg twice a day, ferrous sulfate 325 mg daily, furosemide 20 mg daily, mexiletine 150 mg 3 times a day, nitroglycerin sublingually every 5 minutes x 3, rivaroxaban for Xarelto 10 mg daily, Entresto 97/103 tablet one tablet twice a day, sotalol 120 mg twice a day and spironolactone 25 mg daily. FINAL DISCHARGE DIAGNOSES: 1. Acute hypoxic respiratory failure. 2. Acute on chronic systolic congestive heart failure, ejection fraction was 35-40%. An echocardiogram done a week ago at Dr. Prescott's office, ischemic cardiomyopathy, status post AICD, he follows with Dr. Prescott, Cardiology at [facility], coronary artery disease, status post PCI with stent deployment, hypertension, hyperlipidemia, chronic kidney disease, paroxysmal atrial fibrillation, rate controlled, well anticoagulated. Unfortunately, the patient continued to abuse amphetamine as well as tobacco. MIGUEL VALDIVIA MD DR: MERVIN/hector JOB#: [id number] / [id number]
== END 2020-08-04 16:05 | disposition home or self-care (01) ==
LOC: ER 05:33 → ICU 07:01 → INTOOBSV 07:01
PROVIDERS: ADMIT Internal Medicine; ATTEND Internal Medicine
DX: J96.01 Acute respiratory failure with hypoxia (principal); I13.0 Hypertensive heart and chronic kidney disease with heart failure and stage 1 through stage 4 chronic kidney disease, or unspecified chronic kidney disease; I50.23 Acute on chronic systolic (congestive) heart failure; N18.9 Chronic kidney disease, unspecified; I25.10 Atherosclerotic heart disease of native coronary artery without angina pectoris; J81.1 Chronic pulmonary edema; I25.810 Atherosclerosis of coronary artery bypass graft(s) without angina pectoris; I73.9 Peripheral vascular disease, unspecified; J44.9 Chronic obstructive pulmonary disease, unspecified; K21.9 Gastro-esophageal reflux disease without esophagitis; D64.9 Anemia, unspecified; F03.90 Unspecified dementia, unspecified severity, without behavioral disturbance, psychotic disturbance, mood disturbance, and anxiety; D63.8 Anemia in other chronic diseases classified elsewhere; I25.2 Old myocardial infarction; I25.5 Ischemic cardiomyopathy; E78.5 Hyperlipidemia, unspecified; F17.210 Nicotine dependence, cigarettes, uncomplicated; F12.90 Cannabis use, unspecified, uncomplicated; F15.10 Other stimulant abuse, uncomplicated; I48.0 Paroxysmal atrial fibrillation; Z86.711 Personal history of pulmonary embolism; Z86.19 Personal history of other infectious and parasitic diseases; Z95.1 Presence of aortocoronary bypass graft; Z95.810 Presence of automatic (implantable) cardiac defibrillator; Z95.5 Presence of coronary angioplasty implant and graft; Z23 Encounter for immunization; Z79.899 Other long term (current) drug therapy
CPT/HCPCS: 36415; 51702; 71045; 80048; 80053; 80061; 80076; 80307; 81001; 82550; 82803; 83605; 83690; 83735; 83880; 84443; 84484; 85025; 85379; 85610; 85730; 87040; 90471; 90686; 93005; 94640; 94660; 96365; 96368; 96375; 96376; 99291; 99292; G0378; J0456; J0696; J1940; J2930; J7050; G0379

== ENCOUNTER 2021-01-10 23:44 | Observation (INO) | payer OTHER, MEDICAID ==
[~2021-01-10] VITALS: Ht 177.8 cm; Wt 61.2 kg
[~2021-01-10 23:44] MED LIST changes: +CARV6.2541 PO
[2021-01-11 00:35] LABS: CALCIUM 8.9 mg/dL (8.5-10.1); CREATININE 1.4 mg/dL (0.7-1.3); GFR 60.8; POTASSIUM 5.2 mmol/L (3.5-5.1)
[2021-01-11 00:38] LABS: BASO # 0.1 x10^3/uL (0.0-0.2); BASO % 1 % (0-3); EOS # 0.2 x10^3/uL (0.0-0.7); EOS % 3 % (0-3); HEMATOCRIT 39.4 % (39.0-53.0); LYMPH # 2.3 x10^3/uL (1.0-4.8); LYMPH % 34 % (24-48); MEAN CORPUSCULAR HEMOGLOBIN 33 pg (25-35); MEAN CORPUSCULAR HGB CONC 33 g/dL (31-37); MEAN CORPUSCULAR VOLUME 100 fL (79-100); MONO # 0.8 x10^3/uL (0.0-1.1); MONO % 12 % (0-9); NEUT # 3.6 x10^3uL (1.8-7.7); NEUT % 51 % (31-73); PLATELET COUNT 126 x10^3/uL (140-400); RED BLOOD COUNT 3.93 x10^6/uL (4.30-5.70); RED CELL DISTRIBUTION WIDTH 14.9 % (11.5-14.5); WHITE BLOOD COUNT 6.9 x10^3/uL (4.0-11.0)
[2021-01-11 00:40] LABS: ALBUMIN 3.9 g/dL (3.4-5.0); ALBUMIN/GLOBULIN RATIO 1.1 (1.0-1.7); TOTAL PROTEIN 7.4 g/dL (6.4-8.2)
--- NOTE | 2021-01-11 01:08 | RAD ---
XR CHEST 1V Clinical Indication: Reason: SOA Comparison: AP chest, September 22, 2020. Findings: There is left chest dual-chamber ICD. Atherosclerotic thoracic aorta. The cardiac size is upper limit s of normal. There are diffuse interstitial opacities, a component may be chronic. There is no pneumo thorax. No pleural effusion is appreciated. No acute bone abnormality. IMPRESSION: Diffuse interstitial opacities are similar to prior study, a component is likely chronic. Cannot excl ude superimposed mild interstitial edema or pneumonia. Electronically signed by: Hiro Coley MD (01/11/2021 1:05 AM) [facility]
[2021-01-11] MEDS ORDERED: IOHEXOL 350 MG/ML 100 ML VIAL. IV ONE (01:30)
[2021-01-11] MEDS ORDERED: CONTRAST GIVEN. MC PRN (01:45)
--- NOTE | 2021-01-11 02:46 | RAD ---
PQRS Compliance Statement: One or more of the following individualized dose reduction techniques were utilized for this examinat ion: 1. Automated exposure control 2. Adjustment of the mA and/or kV according to patient size 3. Use of iterative reconstruction technique CT CHEST WITH CONTRAST, PULMONARY ANGIOGRAM History: Reason: SOB, H/O PE, Comparison: CT chest with contrast October 17, 2015. Technique: Helical CT of the chest was performed after the administration of 90 cc of Omnipaque 350 intravenous contrast according to PE protocol. Axial and coronal reconstructions were obtained. 3-D MIP images were constructed to better evaluate the pulmonary arteries. Findings: Pulmonary arteries are adequately opacified. There is no evidence of pulmonary embolism. Ectasia of the ascending thoracic aorta, diameter 3.8 cm. There is three-vessel coronary artery disea se. There is left chest dual-chamber ICD. The thyroid is symmetric. There are subcentimeter bilateral hilar lymph nodes. Borderline cardiomegaly. Trace pericardial fluid. There are small bilateral pleural effusions. There are moderate retained secretions or mucous in the right mainstem bronchus and bronchus intermedius. There is bilateral peribronchial thickening, modera te. There is interlobular septal thickening that is moderate. Right lower lobe calcified granuloma. Atherosclerotic abdominal aorta. There is a 7 mm nonobstructing left renal calculus. Thoracic spine alignment is maintained. IMPRESSION: 1. There is no pulmonary embolus. 2. Moderate interlobular septal thickening suggests interstitial edema. 3. Small bilateral pleural effusions. 4. Moderate bilateral peribronchial thickening suggests bronchitis or reactive airways disease. 5. Borderline cardiomegaly. Correlate for mild CHF. 6. Nonobstructing left renal calculus. Electronically signed by: Hiro Coley MD (01/11/2021 2:43 AM) [facility]
[2021-01-11 02:52] LABS: BACTERIA,URINE FEW /HPF (0-FEW); BILIRUBIN,URINE NEG (NEG); CLARITY,URINE CLEAR; COLOR,URINE YELLOW; GLUCOSE,URINE NEG (NEG); HYALINE CASTS, URINE OCC /HPF; NITRITE,URINE NEG (NEG); SQUAMOUS EPITHELIAL CELL,UR FEW /LPF; WBC,URINE 0 /HPF (0-4)
[2021-01-11] MEDS ORDERED: FUROSEMIDE 40 MG/4 ML VIAL IVP ONE (03:00)
[2021-01-11] MEDS ORDERED: IV NORMAL SALINE 50ML 50 ML ONE (03:07)
[2021-01-11] MEDS ORDERED: cefTRIAXone SODIUM 1 GM VIAL ONE (03:07)
--- NOTE | 2021-01-11 03:10 | PHYS DOC ---
Past History Past Medical History: Anemia, Anxiety, Arthritis, Arrhythmia, Bronchitis, CAD, CHF, COPD, Dementia, GERD, Hypertension, OH, Renal Disease, Other Additional Past Medical Histor: RESP FAILURE, PE, HEP ABC, Past Surgical History: Angioplasty, Pacemaker Additional Past Surgical Histo: MULTIPLE STENT PLACEMENT Smoking: Less than 1pk/day Alcohol Use: Occasionally Drug Use: Cocaine, Marijuana Adult General Chief Complaint Chief Complaint: SHORTNESS OF BREATH HPI HPI Patient is a 70-year-old male with a past medical history significant for CAD, CHF, COPD and dementia on anticoagulation who presents to the emergency department with a chief complaint of 2 days of dyspnea on exertion, orthopnea. States he has been taking all his medications as prescribed. States he is eating and drinking approximately normal for him. States he is making urine and stool approximately normal for him. Denies any recent traumas, travels, illnesses, fevers, chest pain, abdominal pain, nausea, vomiting, dysuria, hematuria, blood in the stool or diarrhea. Denies any known ill contacts. Review of Systems Review of Systems Review of systems otherwise unremarkable except noted in HPI Current Medications Current Medications Current Medications Medications (Trade) Dose Ordered Sig/Paula Start Time Stop Time Status Last Admin Dose Admin Ceftriaxone Sodium 1 gm/ Sodium Chloride 50 ml @ 100 mls/hr 1X ONCE 01/11/21 03:15 01/11/21 03:44 UNV Furosemide (Lasix) 40 mg 1X ONCE 01/11/21 03:00 01/11/21 03:01 DC Info (Do NOT chart on this entry -- for MONITORING) 1 each PRN DAILY PRN 01/11/21 01:45 01/13/21 01:44 Iohexol (Omnipaque 350 Mg/ml) 90 ml 1X ONCE 01/11/21 01:30 01/11/21 01:43 DC 01/11/21 02:12 90 ML Allergies Allergies Allergies Coded Allergies Type Severity Reaction Last Updated Verified enalapril Allergy Intermediate UPPER LIP SWELLING 04/29/20 Yes Physical Exam Physical Exam Constitutional: Well developed, well nourished, no acute distress, non-toxic appearance. [] HENT: Normocephalic, atraumatic, bilateral external ears normal, oropharynx moist, no oral exudates, nose normal. [] Eyes: conjunctiva normal, no discharge. [] Neck: Normal range of motion, no tenderness, supple, no stridor. [] Cardiovascular:Heart rate regular rhythm, no murmur [] Lungs & Thorax: Bilateral breath sounds with global rhonchi Abdomen: soft, no tenderness, no masses, no pulsatile masses. [] Skin: Warm, dry, no erythema, no rash. [] Back: no CVA tenderness. [] Extremities: No tenderness, ROM intact, no edema. [] Neurologic: Alert and oriented X 3, no focal deficits noted. [] Psychologic: Affect normal, judgement normal, mood normal. [] Current Patient Data Vital Signs Vital Signs Date Time Temp Pulse Resp B/P (MAP) Pulse Ox O2 Delivery O2 Flow Rate FiO2 01/11/21 00:14 96.3 67 24 163/113 94 Nasal Cannula 3.0 Lab Results Laboratory Tests Test 01/11/21 00:15 01/11/21 02:15 White Blood Count 6.9 x10^3/uL (4.0-11.0) Red Blood Count 3.93 x10^6/uL (4.30-5.70) L Hemoglobin 13.0 g/dL (13.0-17.5) Hematocrit 39.4 % (39.0-53.0) Mean Corpuscular Volume 100 fL (79-100) Mean Corpuscular Hemoglobin 33 pg (25-35) Mean Corpuscular Hemoglobin Concent 33 g/dL (31-37) Red Cell Distribution Width 14.9 % (11.5-14.5) H Platelet Count 126 x10^3/uL (140-400) L Neutrophils (%) (Auto) 51 % (31-73) Lymphocytes (%) (Auto) 34 % (24-48) Monocytes (%) (Auto) 12 % (0-9) H Eosinophils (%) (Auto) 3 % (0-3) Basophils (%) (Auto) 1 % (0-3) Neutrophils # (Auto) 3.6 x10^3uL (1.8-7.7) Lymphocytes # (Auto) 2.3 x10^3/uL (1.0-4.8) Monocytes # (Auto) 0.8 x10^3/uL (0.0-1.1) Eosinophils # (Auto) 0.2 x10^3/uL (0.0-0.7) Basophils # (Auto) 0.1 x10^3/uL (0.0-0.2) Sodium Level 141 mmol/L (136-145) Potassium Level 5.2 mmol/L (3.5-5.1) H Chloride Level 107 mmol/L (98-107) Carbon Dioxide Level 23 mmol/L (21-32) Anion Gap 11 (6-14) Blood Urea Nitrogen 17 mg/dL (8-26) Creatinine 1.4 mg/dL (0.7-1.3) H Estimated GFR (Cockcroft-Gault) 60.8 BUN/Creatinine Ratio 12 (6-20) Glucose Level 146 mg/dL (70-99) H Calcium Level 8.9 mg/dL (8.5-10.1) Total Bilirubin 1.0 mg/dL (0.2-1.0) Aspartate Amino Transferase (AST) 48 U/L (15-37) H Alanine Aminotransferase (ALT) 43 U/L (16-63) Alkaline Phosphatase 104 U/L (46-116) Troponin I Quantitative 0.032 ng/mL (0-0.055) TA-Aat-N-Type Natriuretic Peptide 3517 pg/mL (0-124) H Total Protein 7.4 g/dL (6.4-8.2) Albumin 3.9 g/dL (3.4-5.0) Albumin/Globulin Ratio 1.1 (1.0-1.7) Urine Collection Type Unknown Urine Color Yellow Urine Clarity Clear Urine pH 6.0 Urine Specific [place] >=1.030 Urine Protein 100 mg/dl (NEG-TRACE) Urine Glucose (UA) Neg mg/dL (NEG) Urine Ketones (Stick) Trace mg/dL (NEG) Urine Blood Trace (NEG) Urine Nitrite Neg (NEG) Urine Bilirubin Neg (NEG) Urine Urobilinogen Dipstick 2.0 mg/dL (0.2 mg/dL) Urine Leukocyte Esterase Neg (NEG) Urine RBC 1-2 /HPF (0-2) Urine WBC 0 /HPF (0-4) Urine Squamous Epithelial Cells Few /LPF Urine Transitional Epithelial Cells Occ /LPF Urine Renal Epithelial Cells Occ /LPF Urine Bacteria Few /HPF (0-FEW) Urine Hyaline Casts Occ /HPF Urine Mucus Slight /LPF EKG EKG EKG with a rate of 63, QRS of 86, QTc 476, no STEMI [] Radiology/Procedures Radiology/Procedures [] One or more of the following individualized dose reduction techniques were utilized for this examination: 1. Automated exposure control 2. Adjustment of the mA and/or kV according to patient size 3. Use of iterative reconstruction technique CT CHEST WITH CONTRAST, PULMONARY ANGIOGRAM History: Reason: SOB, H/O PE, Comparison: CT chest with contrast October 17, 2015. Technique: Helical CT of the chest was performed after the administration of 90 cc of Omnipaque 350 intravenous contrast according to PE protocol. Axial and coronal reconstructions were obtained. 3-D MIP images were constructed to better evaluate the pulmonary arteries. Findings: Pulmonary arteries are adequately opacified. There is no evidence of pulmonary embolism. Ectasia of the ascending thoracic aorta, diameter 3.8 cm. There is three-vessel coronary artery disease. There is left chest dual-chamber ICD. The thyroid is symmetric. There are subcentimeter bilateral hilar lymph nodes. Borderline cardiomegaly. Trace pericardial fluid. There are small bilateral pleural effusions. There are moderate retained secretions or mucous in the right mainstem bronchus and bronchus intermedius. There is bilateral peribronchial thickening, moderate. There is interlobular septal thickening that is moderate. Right lower lobe calcified granuloma. Atherosclerotic abdominal aorta. There is a 7 mm nonobstructing left renal calculus. Thoracic spine alignment is maintained. IMPRESSION: 1. There is no pulmonary embolus. 2. Moderate interlobular septal thickening suggests interstitial edema. 3. Small bilateral pleural effusions. 4. Moderate bilateral peribronchial thickening suggests bronchitis or reactive airways disease. 5. Borderline cardiomegaly. Correlate for mild CHF. 6. Nonobstructing left renal calculus. Electronically signed by: Hiro Coley MD (01/11/2021 2:43 AM) [facility] Heart Score C/O Chest Pain: No Risk Factors: Risk Factors: DM, Current or recent (<one month) smoker, HTN, HLP, family history of CAD, obesity. Risk Scores: Risk Factors: DM, Current or recent (<one month) smoker, HTN, HLP, family history of CAD, obesity. Course & Med Decision Making Course & Med Decision Making Patient is a 70-year-old male who presents with 2 days of shortness of breath Vital signs notable for tachypnea and hypoxia on room air placed on 2 L nasal cannula to bring oxygen saturations up to mid 90s. Physical exam noted above. EKG noted above with no STEMI. Troponin normal. Laboratory analysis notable for mildly elevated creatinine, elevated BNP and proteinuria. CT notable for pulmonary edema, with small bilateral pleural effusions with signs of COPD and possible pneumonia. Patient given Lasix, started on antibiotics and Covid pending. Discussed all findings with patient and advised admission to the hospital for continued evaluation and treatment of his fluid overload. Patient grateful, verbalized understanding and agreed with plan of admission. [] Dragon Disclaimer Dragon Disclaimer This electronic medical record was generated, in whole or in part, using a voice recognition dictation system. Departure Departure: Impression: Primary Impression: Shortness of breath Additional Impressions: Pulmonary edema Hypoxia Pneumonia Disposition: ADMITTED INPATIENT Admitting Physician: Oziel Marcial Condition: IMPROVED Referrals: FELICITY RESTREPO MD (PCP) Problem Qualifiers GABRIELLE SULLIVAN MD Jan 11, 2021 03:10
[2021-01-11] MEDS ORDERED: AZITHROMYCIN 250 MG TABLET. PO ONE (03:15)
[2021-01-11 06:37] VITALS: BP 159/90
--- NOTE | 2021-01-11 06:48 | EKG ---
[address] [address] Test Date: 2021-01-11 Test Time: 00:30:36 Pat Name: LISY BENNETT Department: Room: Gender: M Civil Designer: 8 : 1950 Requested By: GABRIELLE SULLIVAN Order Number: [id number] Reading MD: Measurements Intervals [place] Rate: 63 P: AR: QRS: -85 QRSD: 86 T: 116 QT: 462 QTc: 476 Interpretive Statements IRREGULAR RHYTHM, NO P-WAVE FOUND ABNORMAL LEFT AXIS DEVIATION R-S TRANSITION ZONE IN V LEADS DISPLACED TO THE RIGHT LEFT ANTERIOR FASCICULAR BLOCK CONSIDER LEFT VENTRICULAR HYPERTROPHY T ABNORMALITY IN ANTERIOR LEADS PROLONGED QT ABNORMAL ECG RI6.02 No previous ECG available for comparison
[2021-01-11] MEDS ORDERED: CLOP75TA PO (08:56)
[2021-01-11 11:56] VITALS: BP 160/91
[2021-01-11] MEDS ORDERED: SPIRONOLACTONE 25 MG TABLET PO SCH (12:15)
--- NOTE | 2021-01-11 12:40 | HP ---
ADMIT DATE: 01/11/2021 ATTENDING PHYSICIAN: Dr. Marcial. CHIEF COMPLAINT: Shortness of breath for the last 2 days. HISTORY OF PRESENT ILLNESS: The patient is a 70-year-old gentleman with known cardiomyopathy. He is admitted with a 2-day history of increasing congestion, shortness of breath and dyspnea with minimal exertion. He is confused. He has underlying dementia. The patient had a workup in the ED. CT scan showed no evidence of blood clot, but he does have cardiomegaly. He has a pacemaker defibrillator. He also has bilateral pleural effusions and exacerbation of congestive heart failure. PAST MEDICAL HISTORY: Significant for severe heart failure. He has a pacemaker defibrillator; history of PE; hepatitis A, B, C; substance abuse; cocaine and marijuana. He is a smoker. He also has hypertension, gastroesophageal reflux disease, chronic kidney disease, chronic bronchitis, COPD, dementia and anemia of chronic disease. ALLERGIES: HE HAS ALLERGIES TO ENALAPRIL, EXACT REACTION IS UNCLEAR. CURRENT MEDICATIONS: Reviewed. He was taking Entresto 97/103 b.i.d., Betapace 120 mg b.i.d., Aldactone 25 mg daily, Xarelto 10 mg daily, mexiletine 150 t.i.d., Lasix only 20 mg daily, ferrous sulfate, Plavix, Coreg, and Lipitor. SOCIAL HISTORY: He is a smoker. Substance abuse noted. Alcohol history noted. FAMILY HISTORY: Unobtainable. REVIEW OF SYSTEMS: Significant for the dyspnea with minimal exertion. All other systems reviewed and turned to be negative. PHYSICAL EXAMINATION: GENERAL: When I saw him, this is a pleasantly confused gentleman. INITIAL VITAL SIGNS: Showed a blood pressure of 159/90. He is afebrile. Oxygen sats were 96% on room air. HEENT: Head is without trauma. Pupils are reactive. Sclerae nonicteric. The oropharynx is clear. NECK: Supple. No bruits identified. LUNGS: Bibasilar rales. CARDIOVASCULAR: Showed distant heart tones. No obvious gallops. Peripheral pulses are palpable and full. ABDOMEN: Soft. No guarding. PERTINENT LABORATORY STUDIES: CT of the chest as noted, cardiomegaly with bilateral pleural effusions. Hemoglobin 13.0 g/dL, white count 6900. Sodium 141, potassium 5.2 mEq/L, creatinine is 1.2 mg percent. BNP is 3500. First set of cardiac enzymes negative for coronary ischemia. Nonfasting blood sugar 146. ASSESSMENT: 1. A 70-year-old gentleman with acute on chronic congestive heart failure, systolic. 2. Ischemic cardiomyopathy. 3. History of permanent pacemaker defibrillator. 4. Labile hypertension. 5. Polysubstance abuse. 6. Chronic obstructive pulmonary disease. 7. Chronic kidney disease. PLAN: 1. Admit to the inpatient unit. 2. Resume home meds, questionable compliance. 3. Fluid restriction. 4. Diuresis. 5. Serial chemistries. BAR DR: Kimi TID: [id number] CC: FELICITY RESTREPO MD
[2021-01-11] MEDS: SOTALOL 80 MG TABLET. PO SCH ×2 (12:50→20:35)
[2021-01-11] MEDS: POTASSIUM CHLORIDE 20 MEQ TABLET.ER. PO SCH (12:51)
[2021-01-11] MEDS: CLOPIDOGREL BISULFATE 75 MG TABLET PO SCH (12:51)
[2021-01-11] MEDS: FUROSEMIDE 40 MG/4 ML VIAL IVP SCH (12:51)
[2021-01-11] MEDS: MEXILETINE 150 MG CAPSULE PO SCH ×2 (12:51→20:34)
[2021-01-11 15:34] VITALS: BP 155/92
[2021-01-11] MEDS ORDERED: RIVAROXABAN 10 MG TABLET. PO SCH (16:00)
[2021-01-11] MEDS: CARVEDILOL 6.25 MG TABLET PO SCH (16:55)
[2021-01-11 19:24] VITALS: BP 121/55
[2021-01-11 20:28] VITALS: BP 134/87
[2021-01-11] MEDS: SACUBITRIL/VALSARTAN 49/51MG TABLET. PO SCH (20:35)
[2021-01-11] MEDS ORDERED: ATORVASTATIN CALCIUM 20 MG TABLET PO SCH (21:00)
[2021-01-11 23:12] VITALS: BP 125/78
[2021-01-12 06:02] VITALS: BP 134/85
[2021-01-12 07:49] LABS: ALBUMIN 4.3 g/dL (3.4-5.0); ALBUMIN/GLOBULIN RATIO 1.1 (1.0-1.7); CALCIUM 9.2 mg/dL (8.5-10.1); CREATININE 1.7 mg/dL (0.7-1.3); GFR 48.6; POTASSIUM 3.6 mmol/L (3.5-5.1); TOTAL PROTEIN 8.1 g/dL (6.4-8.2)
[2021-01-12] MEDS: SOTALOL 80 MG TABLET. PO SCH (08:04)
[2021-01-12] MEDS: CARVEDILOL 6.25 MG TABLET PO SCH (08:05)
[2021-01-12] MEDS: POTASSIUM CHLORIDE 20 MEQ TABLET.ER. PO SCH (08:05)
[2021-01-12] MEDS: CLOPIDOGREL BISULFATE 75 MG TABLET PO SCH (08:05)
[2021-01-12 08:06] VITALS: BP 134/85
[2021-01-12] MEDS: SACUBITRIL/VALSARTAN 49/51MG TABLET. PO SCH (08:06)
[2021-01-12] MEDS: FUROSEMIDE 40 MG/4 ML VIAL IVP SCH (08:06)
[2021-01-12] MEDS: MEXILETINE 150 MG CAPSULE PO SCH (08:07)
--- NOTE | 2021-01-12 08:47 | DS ---
DATE OF DISCHARGE: 01/12/2021 ATTENDING PHYSICIAN: Dr. Marcial. FINAL DISCHARGE DIAGNOSES: 1. Acute on chronic congestive heart failure, improved. 2. Ischemic cardiomyopathy. 3. History of permanent pacemaker and defibrillator. 4. Labile hypertension. 5. Polysubstance abuse. 6. Chronic obstructive pulmonary disease. 7. Chronic kidney disease. 8. Questionable compliance. HISTORY AND PHYSICAL: The patient is a 70-year-old gentleman well known to us from previous admissions. He was admitted with increasing dyspnea with some hypoxemia and evidence of congestive heart failure. PHYSICAL EXAMINATION: Please see my dictated note. PERTINENT LABORATORY AND X-RAY STUDIES: Admission hemoglobin was 13.0 g/dL, white count 6900. Electrolytes within normal range. Potassium 5.2 mEq. Cardiac enzymes negative for coronary ischemia. BNP was 3500. Creatinine 1.4 mg/dL. Nonfasting blood sugar 146. COURSE IN THE HOSPITAL: The patient was admitted. He was started on intravenous diuresis with IV Lasix. He had been cut down back only 20 mg daily. I believe he needed more. The rest of his home meds were continued. He did well. By the third hospital day, his lungs were clear. Heart rate was regular. He was comfortable. He was afebrile. He had oxygen saturation 95% now on room air. He was ready for discharge. At this time, I suggested he take 80 mg of Lasix daily. I wrote him scripts. In addition, he will continue his Coreg 6.25 mg b.i.d., Plavix 75 mg daily, ferrous sulfate daily, mexiletine 150 mg t.i.d., nitroglycerin p.r.n., Xarelto 10 mg daily, Entresto 97/103 one tablet b.i.d., Betapace 120 mg b.i.d. and Aldactone 25 mg daily. He will follow up with Dr. Henry and his temp recruiter. He was discharged then from our hospital in stable condition with explicit instruction and followup care. JULIET DR: Kimi TID: [id number] CC: FELICITY HENRY MD
[2021-01-12] MEDS ORDERED: FERROUS SULFATE 325 MG TABLET. PO SCH (09:00)
== END 2021-01-12 10:37 | disposition home or self-care (01) ==
LOC: ER 23:44 → 1 SOUTH 01-11 05:01 → INTOOBSV 01-11 05:01
PROVIDERS: ADMIT Hospitalist; ATTEND Hospitalist
DX: I13.0 Hypertensive heart and chronic kidney disease with heart failure and stage 1 through stage 4 chronic kidney disease, or unspecified chronic kidney disease (principal); I50.23 Acute on chronic systolic (congestive) heart failure; I25.5 Ischemic cardiomyopathy; Z20.822 Contact with and (suspected) exposure to COVID-19; J44.0 Chronic obstructive pulmonary disease with (acute) lower respiratory infection; J18.9 Pneumonia, unspecified organism; J96.91 Respiratory failure, unspecified with hypoxia; N18.9 Chronic kidney disease, unspecified; F03.90 Unspecified dementia, unspecified severity, without behavioral disturbance, psychotic disturbance, mood disturbance, and anxiety; D63.8 Anemia in other chronic diseases classified elsewhere; I25.10 Atherosclerotic heart disease of native coronary artery without angina pectoris; N20.0 Calculus of kidney; Z79.01 Long term (current) use of anticoagulants; Z79.02 Long term (current) use of antithrombotics/antiplatelets; Z79.899 Other long term (current) drug therapy; Z86.711 Personal history of pulmonary embolism; Z95.0 Presence of cardiac pacemaker; Z95.810 Presence of automatic (implantable) cardiac defibrillator; F17.200 Nicotine dependence, unspecified, uncomplicated
CPT/HCPCS: 36415; 71045; 71275; 80053; 81001; 83880; 84484; 85025; 87426; 93005; 96374; 96375; 96376; 99285; G0378; J0696; J1940; Q9967; U0003; G0379